=== PATIENT | male | born 1960 | race Caucasian/White ===

== ENCOUNTER → 2022-02-06 | Outpatient (CLI) | payer BC ==
--- NOTE | 2022-02-06 09:07 | FL ---
EXAMINATION TYPE: FL sniff test without CXR DATE OF EXAM: 02/06/2022 COMPARISON: X-ray dated 01/28/2022 HISTORY: Dyspnea on exertion TECHNIQUE: Observation of patient's breathing under fluoroscopy FINDINGS: Fluoroscopic guidance was provided during the procedure. A total of 1 minute and 44 secon ds of fluoroscopic time was utilized during the procedure and 15 spot images was acquired. Slightly elevated right hemidiaphragm, appreciated previously. Slightly diminished diaphragmatic excu rsions, mainly appreciated with rapid breathing. No convincing evidence of diaphragmatic paralysis or paradoxical movement at the time of the study. IMPRESSION: As Above.
--- NOTE | 2022-02-06 09:50 | CT ---
EXAMINATION TYPE: CT chest wo con DATE OF EXAM: 02/06/2022 INDICATION: Dyspnea CT DLP: 615.00 mGy.cm Automated Exposure Control for Dose Reduction was Utilized. TECHNIQUE AND CONTRAST: Axial supine and prone CT scan of the chest is performed as per high-resolution CT scan protocol, wit hout IV contrast administration. COMPARISON: X-ray dated 01/28/2022 FINDINGS: Nonspecific bilateral basal pulmonary mild fibrotic changes and peripheral reticulations, slightly mo re on the left side. No evidence of traction bronchiectasis, honeycombing or significant groundglass opacity. No obvious pulmonary cystic changes, septal thickening or diffuse micronodules. Tiny microno dules are seen at the posterior aspect of the right lower lobe, likely inflammatory/infectious in raji ology. Patent trachea and main bronchi. No pleural effusion. Apparent cardiomegaly with dilated ascending aorta measuring 4.9 cm, please correlate with echocardio graphic results. Scattered arterial atherosclerotic calcifications. The pulmonary trunk measures 3.3 cm, suggestive of pulmonary hypertension. No pathologically enlarged lymph nodes in the chest by this CT scan. No sizable pericardial effusion. Grossly unremarkable upper abdomen. Sternotomy wire suture s. IMPRESSION: Mild nonspecific pulmonary fibrotic changes mainly seen in the lower lobes as detailed above, indeter minate for UIP. Recommend clinical correlation and further workup. Other findings as described above.
== END | disposition home or self-care (01) ==
LOC: RADCTMAIN 07:18
PROVIDERS: ATTEND Internal Medicine Critical Care Medicine
DX: J84.10 Pulmonary fibrosis, unspecified (principal); J98.6 Disorders of diaphragm
CPT/HCPCS: 71250; 76000

== ENCOUNTER 2023-02-13 00:57 | Observation (INO) | payer OTHER ==
[2023-02-13] MEDS ORDERED: ACETAMINOPHEN TAB 500 MG TAB PO STA (01:37)
[2023-02-13 01:54] LABS: Basophils % (A) 0 %; Eosinophils % (A) 0 %; HCT 41.9 % (39.0-53.0); Lymphocytes # (A) 0.7 k/uL (1.0-4.8); Lymphocytes % (A) 12 %; MCH 31.6 pg (25.0-35.0); MCHC 33.4 g/dL (31.0-37.0); MCV 94.6 fL (80.0-100.0); Mean Platelet Volume 8.7; Monocytes # (A) 0.3 k/uL (0-1.0); Monocytes % (A) 5 %; Neutrophils # (A) 5.1 k/uL (1.3-7.7); Neutrophils % (A) 81 %; Platelet Count 140 k/uL (150-450); RBC 4.43 m/uL (4.30-5.90); RDW 13.4 % (11.5-15.5); WBC 6.2 k/uL (3.8-10.6)
[2023-02-13 02:02] LABS: Albumin 4.2 g/dL (3.5-5.0); Calcium 9.2 mg/dL (8.4-10.2); Total Bilirubin 1.7 mg/dL (0.2-1.3); Total Protein 6.6 g/dL (6.3-8.2)
[2023-02-13 02:18] LABS: Partial Thromboplastin Time 21.3 sec (22.0-30.0); Prothrombin Time 10.2 sec (9.0-12.0)
--- NOTE | 2023-02-13 03:23 | CT ---
EXAM: CT Head Without Intravenous Contrast CLINICAL HISTORY: ITS.REASON CT Reason: fall TECHNIQUE: Axial computed tomography images of the head/brain without intravenous contrast. CTDI is 45.285 mGy and DLP is 1160.5 mGy-cm. This CT exam was performed using one or more of the following dose reduction techniques: automated exposure control, adjustment of the mA and/or kV according to patient size, and/or use of iterative reconstruction technique. COMPARISON: No relevant prior studies available. FINDINGS: Brain: No hemorrhage or mass effect. Ventricles: No hydrocephalus. Bones/joints: Unremarkable. Soft tissues: Unremarkable. Sinuses: No air fluid level. Mastoid air cells: Clear. IMPRESSION: No acute hemorrhage, hydrocephalus, or mass effect. EXAM: CT Cervical Spine Without Intravenous Contrast CLINICAL HISTORY: ITS.REASON CT Reason: fall TECHNIQUE: Axial computed tomography images of the cervical spine without intravenous contrast. CTDI is 11.585 mGy and DLP is 389.1 mGy-cm. This CT exam was performed using one or more of the following dose reduction techniques: automated exposure control, adjustment of the mA and/or kV according to patient size, and/or use of iterative reconstruction technique. COMPARISON: No relevant prior studies available. FINDINGS: Vertebrae: No acute fracture. Discs/spinal canal/neural foramina: degenerative changes. Soft tissues: No prevertebral swelling. IMPRESSION: No acute fracture or subluxation.
--- NOTE | 2023-02-13 03:34 | ED ---
Fall HPI - General Source: EMS Mode of arrival: EMS - History of Present Illness MD Complaint: fall, other <Pooja Haney - Last Filed: 02/14/23 11:00> <My Meredithah Elba - Last Filed: 02/23/23 01:05> - General Chief Complaint: Fall Stated Complaint: Fall Time Seen by Provider: 02/13/23 01:32 - History of Present Illness Initial Comments: Patient is 62-year-old male presents to the emergency department for evaluation of fall. Patient was at [facility] for alcohol use. Apparently patient fell at [facility] from standing position. He did hit the back of his head. He lost consciousness but facility is unaware if it was before after the fall. He is on baby aspirin otherwise no blood thinners. Patient is alert and oriented 1 he is confused. He reports mild headache in the back of his head with laceration and mild pain in both of his forearms. He denies history of syncope, arrhythmia, seizure. Denies chest pain and shortness of breath. Denies fever, chills, nausea or vomiting. (Pooja Haney) - Related Data Home Medications Medication Instructions Recorded Confirmed Aspirin EC [Ecotrin Low Dose] 81 mg PO HS 02/15/22 02/13/23 Metoprolol Tartrate [Lopressor] 12.5 mg PO BID 02/15/22 02/13/23 Simvastatin [Zocor] 40 mg PO HS 02/15/22 02/13/23 Tamsulosin [Flomax] 0.4 mg PO HS 02/15/22 02/13/23 ALPRAZolam [Xanax] 0.5 mg PO TID PRN 02/13/23 02/13/23 Finasteride [Proscar] 5 mg PO HS 02/13/23 02/13/23 Secukinumab [Cosentyx Pen (2 Pens)] 150 mg SQ DIRECTED 02/13/23 02/13/23 lamoTRIgine [LaMICtal] 100 mg PO HS 02/13/23 02/13/23 Previous Rx's Medication Instructions Recorded traZODone HCL [Desyrel] 100 mg PO HS 30 Days tab 02/18/22 QUEtiapine [SEROquel] 25 mg PO HS PRN #30 tab 02/13/23 Allergies Allergy/AdvReac Type Severity Reaction Status Date / Time bupropion [From Wellbutrin] Allergy Unknown Verified 02/13/23 07:17 Penicillins Allergy Rash/Hives Verified 02/13/23 07:17 Review of Systems ROS Other: All systems not noted in ROS Statement are negative. <Pooja Haney - Last Filed: 02/14/23 11:00> ROS Other: All systems not noted in ROS Statement are negative. <Dilcia Meredith Elba - Last Filed: 02/23/23 01:05> ROS Statement: Those systems with pertinent positive or pertinent negative responses have been documented in the HPI. Past Medical History Past Medical History: Coronary Artery Disease (CAD), Hyperlipidemia History of Any Multi-Drug Resistant Organisms: None Reported Past Surgical History: Coronary Bypass/CABG Additional Past Surgical History / Comment(s): Mitral valve replacement 09/03/2021 Past Psychological History: Anxiety, Depression Smoking Status: Never smoker Past Alcohol Use History: Abuse Past Drug Use History: None Reported - Past Family History Sister(s) Family Medical History: Cancer <Pooja Haney - Last Filed: 02/14/23 11:00> General Exam Limitations: no limitations General appearance: alert, in no apparent distress Head exam: Present: atraumatic, normocephalic, normal inspection Eye exam: Present: normal appearance, PERRL, EOMI. Absent: scleral icterus, conjunctival injection, periorbital swelling ENT exam: Present: TM's normal bilaterally Neck exam: Present: normal inspection, full ROM. Absent: tenderness, meningismus, lymphadenopathy Respiratory exam: Present: normal lung sounds bilaterally. Absent: respiratory distress, wheezes, rales, rhonchi, stridor Cardiovascular Exam: Present: regular rate, normal rhythm, normal heart sounds. Absent: systolic murmur, diastolic murmur, rubs, gallop, clicks GI/Abdominal exam: Present: soft, normal bowel sounds. Absent: distended, tenderness, guarding, rebound, rigid Extremities exam: Present: normal inspection, full ROM, normal capillary refill. Absent: tenderness Neurological exam: Present: alert, CN II-XII intact. Absent: oriented X3 Expanded Cranial nerves: Tongue Deviation: Normal, Facial Palsy with Forehead Movement: Normal, Facial Palsy without Forehead Movement: Normal Cerebellar function: Finger to Nose: Normal, Heel to Bray: Normal Sensory exam: Upper Extremity Light Touch: Normal, Lower Extremity Pin Prick: Normal Motor strength exam: RUE: 5, LUE: 5, RLE: 5, LLE: 5 Psychiatric exam: Present: normal affect, normal mood Skin exam: Present: warm, dry, intact, normal color. Absent: rash <MedinaPooja - Last Filed: 02/14/23 11:00> Course Vital Signs 02/13/23 02/13/23 02/13/23 00:59 04:40 07:17 Temperature 97.9 F 98.1 F Pulse Rate 82 74 107 H Respiratory 16 16 18 Rate Blood Pressure 113/77 136/80 119/71 O2 Sat by Pulse 94 L 98 96 Oximetry 02/13/23 02/13/23 02/13/23 10:56 19:29 21:16 Temperature 98.0 F Pulse Rate 92 85 80 Respiratory 18 18 18 Rate Blood Pressure 133/81 139/77 145/87 O2 Sat by Pulse 96 95 98 Oximetry Medical Decision Making - Lab Data Result diagrams: 02/13/23 01:30 02/13/23 01:30 <Pooja Haney - Last Filed: 02/14/23 11:00> - Lab Data Result diagrams: 02/13/23 01:30 02/14/23 16:31 <Dilcia Meredith - Last Filed: 02/23/23 01:05> - Medical Decision Making EKG taken at 3:31, interpreted by me Sinus tachycardia, nonspecific T-wave abnormality Ventricular rate 90, [place] interval 165, QRS duration 85, QTC 338 Was pt. sent in by a medical professional or institution (Dr. PA, [employer], urgent care, hospital, or fci...) When possible be specific @ -No Did you speak to anyone other than the patient for history (EMS, parent, family, police, friend...)? What history was obtained from this source @ -EMS provided information about fall at [facility] Did you review nursing and triage notes (agree or disagree)? Why? @ -I reviewed and agree with nursing and triage notes Were old charts reviewed (outside hosp., previous admission, EMS record, old EKG, old radiological studies, urgent care reports/EKG's, fci records)? Report findings @ -No old charts were reviewed Differential Diagnosis (chest pain, altered mental status, abdominal pain women, abdominal pain men, vaginal bleeding, weakness, fever, dyspnea, syncope, headache, dizziness, GI bleed, back pain, seizure, CVA, palpatations, mental health)? @ -Differential Syncope: Valvular disease, hypertrophic cardiomyopathy, pulmonary embolism, tamponade, tachycardia, bradycardia, MS, hypovolemia, hemorrhage, dissection, anemia, intracranial hemorrhage, seizure, hypoglycemia, carbon monoxide poisoning, this is not meant to be an all-inclusive list. EKG interpreted by me (3pts min.). @ -As above X-rays interpreted by me (1pt min.). @ -Yes, chest x-ray shows slightly prominent interstitial markings. Bilateral forearm x-ray shows no acute fracture. CT interpreted by me (1pt min.). @ -Yes, CT of the brain and C-spine shows no acute process. U/S interpreted by me (1pt. min.). @ -None done What testing was considered but not performed or refused? (CT, X-rays, U/S, labs)? Why? @ -None What meds were considered but not given or refused? Why? @ -None Did you discuss the management of the patient with other professionals (professionals i.e. , PA, [employer], lab, RT, psych nurse, social service agency director, zinc etcher, teacher, patrol officer, skilled nursing case manager)? Give summary @ -No Was smoking cessation discussed for >3mins.? @ -No Was critical care preformed (if so, how long)? @ -No Were there social determinants of health that impacted care today? How? (Homelessness, low income, unemployed, alcoholism, drug addiction, transportation, low edu. Level, literacy, decrease access to med. care, long term, rehab)? @ -No Was there de-escalation of care discussed even if they declined (Discuss DNR or withdrawal of care, Hospice)? DNR status @ -No What co-morbidities impacted this encounter? (DM, HTN, Smoking, COPD, CAD, Cancer, CVA, ARF, Chemo, Hep., AIDS, mental health diagnosis, sleep apnea, morbid obesity)? @ -None Was patient admitted / discharged? Hospital course, mention meds given and route, prescriptions, significant lab abnormalities, going to OR and other pertinent info. @ -Patient presenting for fall possibly secondary to syncope. Patient is alert and oriented 1 little history was provided. Patient placed in c-collar. Lucy ent has 2 cm laceration in the back for scalp. Vitals are within acceptable limits. Patient does not have any tremors. CT of the brain and C-spine shows no acute process. Laboratory studies obtained. ALT is elevated at 205, AST elevated at 182 I suspect related to alcohol use. There is mild hyponatremia at 130 which is treated with normal saline bolus. Troponin within normal limits. Other laboratory studies are relatively unremarkable. Laceration approximated with jacky tetanus updated. Patient's confusion continued during visit. There is no neurological deficit but he has unsteady gait at risk for fall. Possible related to alcohol withdrawal. At this time patient is not safe for discharge he will be admitted for observation for possible syncopal episode. Patient was given to Dr. Meredith at 4:05. Undiagnosed new problem with uncertain prognosis? @ -No Drug Therapy requiring intensive monitoring for toxicity (Heparin, Nitro, Insulin, Cardizem)? @ -No Were any procedures done? @ -No Diagnosis/symptom? @ -Fall, laceration, confusion Acute, or Chronic, or Acute on Chronic? @ -acute Uncomplicated (without systemic symptoms) or Complicated (systemic symptoms)? @ -Uncomplicated Side effects of treatment? @ -No Exacerbation, Progression, or Severe Exacerbation? @ -No Poses a threat to life or bodily function? How? (Chest pain, USA, MS, pneumonia, PE, COPD, DKA, ARF, appy, cholecystitis, CVA, Diverticulitis, Homicidal, Suicidal, threat to staff... and all critical care pts) @ -Yes Dr. Meredith is my attending (Pooja Haney) - Lab Data Lab Results 02/13/23 02/13/23 02/13/23 Range/Units 01:30 01:30 01:30 WBC 6.2 (3.8-10.6) k/uL RBC 4.43 (4.30-5.90) m/uL Hgb 14.0 (13.0-17.5) gm/dL Hct 41.9 (39.0-53.0) % MCV 94.6 (80.0-100.0) fL MCH 31.6 (25.0-35.0) pg MCHC 33.4 (31.0-37.0) g/dL RDW 13.4 (11.5-15.5) % Plt Count 140 L (150-450) k/uL MPV 8.7 Neutrophils % 81 % Lymphocytes % 12 % Monocytes % 5 % Eosinophils % 0 % Basophils % 0 % Neutrophils # 5.1 (1.3-7.7) k/uL Lymphocytes # 0.7 L (1.0-4.8) k/uL Monocytes # 0.3 (0-1.0) k/uL Eosinophils # 0.0 (0-0.7) k/uL Basophils # 0.0 (0-0.2) k/uL PT 10.2 (9.0-12.0) sec INR 1.0 (<1.2) APTT 21.3 L (22.0-30.0) sec Sodium 130 L (137-145) mmol/L Potassium 4.0 (3.5-5.1) mmol/L Chloride 88 L (98-107) mmol/L Carbon Dioxide 33 H (22-30) mmol/L Anion Gap 9 mmol/L BUN 23 H (9-20) mg/dL Creatinine 1.09 (0.66-1.25) mg/dL Est GFR (CKD-EPI)AfAm 83 (>60 ml/min/1.73 sqM) Est GFR (CKD-EPI)NonAf 72 (>60 ml/min/1.73 sqM) Glucose 144 H (74-99) mg/dL Calcium 9.2 (8.4-10.2) mg/dL Total Bilirubin 1.7 H (0.2-1.3) mg/dL AST 182 H (17-59) U/L ALT 205 H (4-49) U/L Alkaline Phosphatase 109 (38-126) U/L Troponin I (0.000-0.034) ng/mL Total Protein 6.6 (6.3-8.2) g/dL Albumin 4.2 (3.5-5.0) g/dL 02/13/23 Range/Units 01:30 WBC (3.8-10.6) k/uL RBC (4.30-5.90) m/uL Hgb (13.0-17.5) gm/dL Hct (39.0-53.0) % MCV (80.0-100.0) fL MCH (25.0-35.0) pg MCHC (31.0-37.0) g/dL RDW (11.5-15.5) % Plt Count (150-450) k/uL MPV Neutrophils % % Lymphocytes % % Monocytes % % Eosinophils % % Basophils % % Neutrophils # (1.3-7.7) k/uL Lymphocytes # (1.0-4.8) k/uL Monocytes # (0-1.0) k/uL Eosinophils # (0-0.7) k/uL Basophils # (0-0.2) k/uL PT (9.0-12.0) sec INR (<1.2) APTT (22.0-30.0) sec Sodium (137-145) mmol/L Potassium (3.5-5.1) mmol/L Chloride (98-107) mmol/L Carbon Dioxide (22-30) mmol/L Anion Gap mmol/L BUN (9-20) mg/dL Creatinine (0.66-1.25) mg/dL Est GFR (CKD-EPI)AfAm (>60 ml/min/1.73 sqM) Est GFR (CKD-EPI)NonAf (>60 ml/min/1.73 sqM) Glucose (74-99) mg/dL Calcium (8.4-10.2) mg/dL Total Bilirubin (0.2-1.3) mg/dL AST (17-59) U/L ALT (4-49) U/L Alkaline Phosphatase (38-126) U/L Troponin I <0.012 (0.000-0.034) ng/mL Total Protein (6.3-8.2) g/dL Albumin (3.5-5.0) g/dL Disposition <Pooja Haney - Last Filed: 02/14/23 11:00> <Dilcia Meredith - Last Filed: 02/23/23 01:05> Clinical Impression: Fall, Confusion, Head injury, Laceration Disposition: ADMITTED IP TO THIS [facility] Condition: Stable
[2023-02-13] MEDS ORDERED: LORazepam 2 MG/ML INJ IV PRN ×2 (03:54)
[2023-02-13] MEDS ORDERED: LORazepam 1 MG TAB PO PRN ×3 (03:54)
[2023-02-13] MEDS ORDERED: SODIUM CHLORIDE 0.9% 1,000 ML IV STA (03:54)
[2023-02-13] MEDS ORDERED: LORazepam 0.5 MG TAB PO PRN (03:54)
[2023-02-13] MEDS ORDERED: THIAMINE 100 MG/ML 2 ML VIAL IM STA (03:54)
[2023-02-13] MEDS ORDERED: DIPH,PERTUS(ACELL)TETVAC-LF 0.5 ML VIAL IM ONE (03:59)
--- NOTE | 2023-02-13 03:59 | XR ---
EXAM: XR Bilateral Forearms, 2 Views CLINICAL HISTORY: ITS.REASON XR Reason: fall TECHNIQUE: Frontal and lateral views of the bilateral forearms. COMPARISON: No relevant prior studies available. FINDINGS: Bones/joints: No acute fracture. No dislocation. Soft tissues: Unremarkable. IMPRESSION: No acute osseous abnormalities.
--- NOTE | 2023-02-13 03:59 | XR ---
EXAM: XR Chest, 1 View CLINICAL HISTORY: ITS.REASON XR Reason: possible syncope TECHNIQUE: Frontal view of the chest. COMPARISON: No relevant prior studies available. FINDINGS: Lungs: No consolidation or mass. Slightly prominent interstitial markings. Pleural space: No acute findings Heart: No cardiomegaly. Bones/joints: No acute findings. IMPRESSION: Slightly prominent interstitial markings.
[2023-02-13] MEDS ORDERED: ACETAMINOPHEN TAB 325 MG TAB PO PRN (04:04)
[2023-02-13] MEDS ORDERED: ONDANSETRON 4 MG/2 ML VIAL IVP PRN (04:04)
[2023-02-13] MEDS ORDERED: SECUKINUMAB 150 MG/ML SQ SCH (11:15)
[2023-02-13] MEDS: SODIUM CHLORIDE 0.9% 1,000 ML IV SCH ×3 (11:25→19:22)
--- NOTE | 2023-02-13 13:09 | P.HPIM ---
History of Present Illness 62-year-old pleasant male [facility]. Patient was bit confused but there is no tongue biting no evidence of seizure-like activity. Patient last alcohol drink was yesterday morning. Patient is found to be dehydrated which resulted in syncope patient serum sodium is 1:30. Patient's creatinine was slightly high at 1.09. Patient will be hydrated today will be discharged today EKG did not show any acute ST-T wave changes no murmurs on exam. Although patient had a mitral valvular surgery in the past and had multiple echocardiac times in the past he did patient does have elevated liver enzymes seconded alcoholic liver disease. Patient may have some early dementia secondary to chronic alcohol use. As per the request of the daughter will do mini cognitive testing. REVIEW OF SYSTEMS: CONSTITUTIONAL: No fever, no malaise, no fatigue. HEENT: No recent visual problems or hearing problems. Denied any sore throat. CARDIOVASCULAR: No chest pain, orthopnea, PND, no palpitations. PULMONARY: No shortness of breath, no cough, no hemoptysis. GASTROINTESTINAL: No diarrhea, no nausea, no vomiting, no abdominal pain. NEUROLOGICAL: No headaches, no weakness, no numbness. HEMATOLOGICAL: Denies any bleeding or petechiae. GENITOURINARY: Denies any burning micturition, frequency, or urgency. MUSCULOSKELETAL/RHEUMATOLOGICAL: Denies any joint pain, swelling, or any muscle pain. ENDOCRINE: Denies any polyuria or polydipsia. The rest of the 14-point review of systems is negative. PHYSICAL EXAMINATION: GENERAL: The patient is alert and oriented x3, not in any acute distress. Well developed, well nourished. HEENT: Pupils are round and equally reacting to light. EOMI. No scleral icterus. No conjunctival pallor. Normocephalic, atraumatic. No pharyngeal erythema. No thyromegaly. CARDIOVASCULAR: S1 and S2 present. No murmurs, rubs, or gallops. PULMONARY: Chest is clear to auscultation, no wheezing or crackles. ABDOMEN: Soft, nontender, nondistended, normoactive bowel sounds. No palpable organomegaly. MUSCULOSKELETAL: No joint swelling or deformity. EXTREMITIES: No cyanosis, clubbing, or pedal edema. NEUROLOGICAL: Gross neurological examination did not reveal any focal deficits. SKIN: No rashes. Assessment and plan -Syncope: Secondary to dehydration intravascularly depletion as mentioned above patient will be hydrated and will be discharged after that no further workup is needed at this time. -Alcohol abuse patient is in rehabilitation program at this time -Hypervolemic hyponatremia: IV hydration as mentioned above -History of coronary artery disease with CABG in the past -Hyperlipidemia Depression/bipolar disorder patient is on Lamictal it appears that patient is a limiting for bipolar disorder -Alcoholic hepatitis -Possibility of early stage of dementia maybe secondary to chronic alcohol use, Mini-Mental Status exam and patient will be prescribed Seroquel as needed for sundowners Patient will be discharged today after IV hydration Past Medical History Past Medical History: Coronary Artery Disease (CAD), Hyperlipidemia History of Any Multi-Drug Resistant Organisms: None Reported Past Surgical History: Coronary Bypass/CABG Additional Past Surgical History / Comment(s): Mitral valve replacement 03/2021 Past Psychological History: Anxiety, Depression Smoking Status: Never smoker Past Alcohol Use History: Abuse Past Drug Use History: None Reported - Past Family History Sister(s) Family Medical History: Cancer Medications and Allergies Home Medications Medication Instructions Recorded Confirmed Type Aspirin EC [Ecotrin Low Dose] 81 mg PO HS 02/15/22 02/13/23 History Metoprolol Tartrate [Lopressor] 12.5 mg PO BID 02/15/22 02/13/23 History Simvastatin [Zocor] 40 mg PO HS 02/15/22 02/13/23 History Tamsulosin [Flomax] 0.4 mg PO HS 02/15/22 02/13/23 History traZODone HCL [Desyrel] 100 mg PO HS 30 Days tab 02/18/22 02/13/23 Rx ALPRAZolam [Xanax] 0.5 mg PO TID PRN 02/13/23 02/13/23 History Finasteride [Proscar] 5 mg PO HS 02/13/23 02/13/23 History QUEtiapine [SEROquel] 25 mg PO HS PRN #30 tab 02/13/23 Rx Secukinumab [Cosentyx Pen (2 Pens)] 150 mg SQ DIRECTED 02/13/23 02/13/23 History lamoTRIgine [LaMICtal] 100 mg PO HS 02/13/23 02/13/23 History Allergies Allergy/AdvReac Type Severity Reaction Status Date / Time bupropion [From Wellbutrin] Allergy Unknown Verified 02/13/23 07:17 Penicillins Allergy Rash/Hives Verified 02/13/23 07:17 Physical Exam Vitals: Vital Signs Temp Pulse Resp BP Pulse Ox 02/13/23 10:56 98.0 F 92 18 133/81 96 02/13/23 07:17 98.1 F 107 H 18 119/71 96 02/13/23 04:40 74 16 136/80 98 02/13/23 00:59 97.9 F 82 16 113/77 94 L Intake and Output 02/12/23 02/13/23 02/13/23 22:59 06:59 14:59 Other: Weight 81.647 kg Results CBC & Chem 7: 02/13/23 01:30 02/13/23 01:30 Labs: Abnormal Lab Results - Last 24 Hours (Table) 02/13/23 02/13/23 02/13/23 Range/Units 01:30 01:30 01:30 Plt Count 140 L (150-450) k/uL Lymphocytes # 0.7 L (1.0-4.8) k/uL APTT 21.3 L (22.0-30.0) sec Sodium 130 L (137-145) mmol/L Chloride 88 L (98-107) mmol/L Carbon Dioxide 33 H (22-30) mmol/L BUN 23 H (9-20) mg/dL Glucose 144 H (74-99) mg/dL Total Bilirubin 1.7 H (0.2-1.3) mg/dL AST 182 H (17-59) U/L ALT 205 H (4-49) U/L
--- NOTE | 2023-02-13 13:09 | P.DS ---
Providers Date of admission: 02/13/23 04:05 Attending physician: Kaylah Lieberman Primary care physician: Stated None Hospital Course: Please refer to history of present illness for further details Patient Condition at Discharge: Stable Plan - Discharge Summary New Discharge Prescriptions: New QUEtiapine [SEROquel] 25 mg PO HS PRN #30 tab PRN Reason: Agitation Continue Tamsulosin [Flomax] 0.4 mg PO HS Simvastatin [Zocor] 40 mg PO HS Aspirin EC [Ecotrin Low Dose] 81 mg PO HS traZODone HCL [Desyrel] 100 mg PO HS 30 Days tab ALPRAZolam [Xanax] 0.5 mg PO TID PRN PRN Reason: panic attacks Finasteride [Proscar] 5 mg PO HS lamoTRIgine [LaMICtal] 100 mg PO HS Metoprolol Tartrate [Lopressor] 12.5 mg PO BID Secukinumab [Cosentyx Pen (2 Pens)] 150 mg SQ DIRECTED Discharge Medication List Aspirin EC [Ecotrin Low Dose] 81 mg PO HS 02/15/22 [History] Metoprolol Tartrate [Lopressor] 12.5 mg PO BID 02/15/22 [History] Simvastatin [Zocor] 40 mg PO HS 02/15/22 [History] Tamsulosin [Flomax] 0.4 mg PO HS 02/15/22 [History] traZODone HCL [Desyrel] 100 mg PO HS 30 Days tab 02/18/22 [Rx] ALPRAZolam [Xanax] 0.5 mg PO TID PRN 02/13/23 [History] Finasteride [Proscar] 5 mg PO HS 02/13/23 [History] QUEtiapine [SEROquel] 25 mg PO HS PRN #30 tab 02/13/23 [Rx] Secukinumab [Cosentyx Pen (2 Pens)] 150 mg SQ DIRECTED 02/13/23 [History] lamoTRIgine [LaMICtal] 100 mg PO HS 02/13/23 [History] Discharge Disposition: OTHER INSTITUTION NOT DEFINED
[2023-02-13] MEDS ORDERED: QUEtiapine 25 MG TAB PO PRN (15:14)
[2023-02-13] MEDS ORDERED: NICOTINE 21MG/24HR PATCH TRANSDERM STA (15:38)
[2023-02-13] MEDS ORDERED: TAMSULOSIN 0.4 MG CAP.ER.24H PO SCH (21:00)
[2023-02-13] MEDS ORDERED: FINASTERIDE 5 MG TAB PO SCH (21:00)
[2023-02-13] MEDS ORDERED: traZODone HCL 100 MG TAB PO SCH (21:00)
[2023-02-13] MEDS ORDERED: ASPIRIN 81 MG PO SCH (21:00)
[2023-02-13] MEDS ORDERED: ATORVASTATIN 20 MG TAB PO SCH (21:00)
[2023-02-13] MEDS ORDERED: lamoTRIgine 100 MG TAB PO SCH (21:00)
[2023-02-13] MEDS: METOPROLOL TARTRATE 12.5 MG TAB PO SCH (21:14)
[2023-02-14] MEDS ORDERED: THIAMINE 100 MG TAB PO SCH (09:00)
[2023-02-14] MEDS: SODIUM CHLORIDE 0.9% 1,000 ML IV SCH ×3 (09:38→09:47)
[2023-02-14] MEDS: METOPROLOL TARTRATE 12.5 MG TAB PO SCH (09:46)
[2023-02-14 10:18] LABS: Urine Alcohol Negative (Negative); Urine Barbiturate Negative (Negative); Urine Cocaine Negative (Negative); Urine Methadone Negative (Negative); Urine Opiates Negative (Negative); Urine Phencyclidine Negative (Negative)
[2023-02-14 10:19] VITALS: RESP 18
--- NOTE | 2023-02-14 13:48 | CA ---
Transthoracic Echo Report Name: Scott Branch Age: 62 Gender: M : 1960 Exam Date: 02/13/2023 13:02 Exam Location: [facility] Ht (in): 72 Wt (lb): 180 Ordering Physician: Inés Marion MD Attending/Referring Phys: Glass Processing Worker Jaye Faulkner RDCS Procedure CPT: Indications: Syncope Cardiac Hx: Technical Quality: Fair Contrast 1: Total Dose (mL): Contrast 2: Total Dose (mL): MEASUREMENTS (Male / Female) Normal Values 2D ECHO LV Diastolic Diameter PLAX 4.9 cm 4.2 - 5.9 / 3.9 - 5.3 cm IVS Diastolic Thickness 0.6 cm 0.6 - 1.0 / 0.6 - 0.9 cm LVPW Diastolic Thickness 1.0 cm 0.6 - 1.0 / 0.6 - 0.9 cm LV Relative Wall Thickness 0.3 RV Internal Dim ED PLAX 3.3 cm LVOT Diameter 2.4 cm Aortic Root Diameter 3.7 cm LA Systolic Diameter LX 3.4 cm 3.0 - 4.0 / 2.7 - 3.8 cm LV Diastolic Volume MOD BP 61.4 cm??? 67 - 155 / 56 - 104 cm??? LV Systolic Volume MOD BP 20.1 cm??? 22 - 58 / 19 - 49 cm??? LV Ejection Fraction MOD BP 67.3 % >= 55 % LV Diastolic Volume MOD 4C 81.6 cm??? LV Systolic Volume MOD 4C 27.9 cm??? LV Ejection Fraction MOD 4C 65.7 % LV Diastolic Length 4C 8.1 cm LV Systolic Length 4C 6.6 cm LV Diastolic Volume MOD 2C 45.7 cm??? LV Systolic Volume MOD 2C 13.7 cm??? LV Ejection Fraction MOD 2C 70.0 % LV Diastolic Length 2C 8.0 cm LV Systolic Length 2C 6.2 cm Ascending Aorta Diameter 3.8 cm DOPPLER AV Peak Velocity 149.6 cm/s AV Peak Gradient 9.0 mmHg Mitral E Point Velocity 108.2 cm/s Mitral A Point Velocity 130.3 cm/s Mitral E to A Ratio 0.8 MV Deceleration Time 283.5 ms MV E' Velocity 18.1 cm/s Mitral E to MV E' Ratio 6.0 TR Peak Velocity 210.8 cm/s TR Peak Gradient 17.8 mmHg Right Ventricular Systolic Press 22.9 mmHg FINDINGS Left Ventricle Left ventricular ejection fraction is estimated at 55-60 %. Right Ventricle Normal right ventricular size and function. RVSP= 26mmhg. Right Atrium Normal right atrial size. Left Atrium Normal left atrial size. LA Volume Index= 26.8 ml/m2 Mitral Valve Grossly Normal. No mitral stenosis, regurgitation or prolapse. Aortic Valve Trileaflet aortic valve. No aortic valve stenosis or regurgitation. Tricuspid Valve Structurally normal tricuspid valve. Trace tricuspid regurgitation. Pulmonic Valve Pulmonic valve not well visualized. No pulmonic regurgitation. Pericardium Normal pericardium. Aorta Normal size aortic root and proximal ascending aorta. CONCLUSIONS Normal LV function Previewed by: Dr. Anival Sahu MD (Electronically Signed) Final Date: 14 Feb 2023 13:47
[2023-02-14 14:17] VITALS: BP 124/80; PULSE 87; TEMP 98.7
--- NOTE | 2023-02-14 15:01 | DS ---
DISCHARGE SUMMARY FINAL DIAGNOSES: 1. Syncope secondary to possible dehydration. 2. Ethanol abuse. 3. Hypovolemic hyponatremia. 4. Multiple medications. DISCHARGE DISPOSITION: The patient will be discharged in stable condition, guarded prognosis, after clearance from Psychiatry and Neurology. HISTORY OF PRESENT ILLNESS: This is a 62-year-old gentleman who was admitted with syncope. The patient was hydrated. The patient improved significantly. The patient will be discharged after clearance from Psychiatry and Neurology. The patient is extremely keen on going home. The patient is walking out of the hospital. PHYSICAL EXAMINATION: VITAL SIGNS: On exam, vitals are stable. CARDIOVASCULAR: S1, S2. ABDOMEN: Soft. NERVOUS SYSTEM: No focal deficits. DIET: Cardiac. Follow up with Dr. Maddie Flores in 1 week. Follow up with [facility], Neurology and Psych as mentioned earlier. MEDICATIONS: Seroquel 250 mg nightly p.r.n. Resume the previous medications. Once again, the patient is stable but overall prognosis guarded. MMODL / IJN: [id number] / MTDKat
--- NOTE | 2023-02-14 16:44 | P.CN ---
Psychiatric Consult - . Consult date: 02/14/23 Consult:: 02/14/23 14:42 IDENTIFYING DATA: This patient is a 62 year old retired male REASON FOR REFERRAL: Psychiatry was consulted for potential psychosis HISTORY OF PRESENT ILLNESS: The patient presented to the hospital from [place] following episode of syncope. Patient has a long history of substance use and depression. Patient reports a relapse with drinking half a pint to a pint of alcohol every day for the past 2 weeks with the last drink being on 02/11/23. He states that he was not taking any medication for alcohol withdrawal while at [place]. He reports that during the period of relapse on his drinking, he has not been compliant with his psychiatric medications including Lamictal and trazodone. He reports largely doing well on his medications prior to discontinuation of them. Patient endorses drinking because of loneliness. He reports a low mood at baseline. He endorses fair appetite. He states that he enjoys bowling and spending time with people he knows through alcohol anonymous. Patient reports trouble with staying asleep due to having racing thoughts. Discussed the impact of alcohol on sleep. Patient largely understands the immediate and long-term risks of substance use on his mental health. At this time patient denies any suicidal or homicidal ideations, intent or plan. He is future oriented and would like to spend time with his alcohol anonymous friends. Patient denies any auditory, visual hallucinations and denies any paranoia or delusions. He denies constellation of symptoms consistent with jayla. PAST PSYCHIATRIC HISTORY: One prior hospitalization here at [facility] due to depression and alcohol use. He states that he is currently seeing Jaye Moore NP for psychiatric care. He also states that he has a substance use counselor by the name Otilio. His primary care provider was previously prescribing Xanax and citalopram for treatment of depression and anxiety. PAST MEDICAL HISTORY: His history of coronary artery disease and hyperlipidemia. He is status post coronary bypass and mitral valve prolapse. ALLERGIES: Bupropion, penicillins SUBSTANCE USE HISTORY: He is a 30+ year history of alcohol use disorder. He r egularly attends alcohol anonymous meetings. He also endorses using cannabis twice a week. He denies other substance use. FAMILY PSYCHIATRIC/SUBSTANCE USE HISTORY: He reports that his maternal gran dmother also suffered from alcohol use disorder. He states that his mother after having 5 years of dementia. SOCIAL HISTORY: Was born and raised in [facility]. He graduated from high school. He has 1 brother and 1 sister. and twice. He has 2 adult children. 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 His parents are . He lives alone in his own home. He reports being close to his daughter MENTAL STATUS EXAM: General Appearance: Patient appears to be stated age is alert, pleasant, and cooperative. Patient appears to have fair hygiene and grooming wearing hospital gown with good eye contact. Behavior: Patient is calmly lying in bed without any agitated behavior. Speech: Patient's speech is fluent and nonpressured. Mood/Affect: Patient reports their mood is "good now", affect is congruent Suicidality/Homicidality: Patient denies having any suicidal or homicidal ideation intent or plan. Perceptions: Patient denies any visual hallucinations and denies any auditory hallucinations Though content/process: There is no evidence of any delusional thought content and thought process is linear and goal-directed. Memory and concentration: AOX3, grossly intact for the purposes of this session. 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 -Patient DOES have decision making capacity at this time -Continue home psychotropic medications. Discussed with patient at length the concern of resuming Lamictal at 100 mg following discontinuation of this medication. In the future, patient will need to start Lamictal at 25 mg after being noncompliant with this. Described the risk of SJS among other side effects. Patient expressed understanding -Do NOT recommend long-term prescription of benzodiazepines given the risk of falls, cognitive impairment, etc. particularly in context of alcohol use disorder -Once liver enzymes have stabilized, might consider outpatient treatment with naltrexone for alcohol craving. Patient was currently not interested in Campral due to its 3 times a day dosing. -Discussed recommendation of Remeron as an agent for mood, sleep, and appetite. Patient was currently hesitant to be started on this medication. This might be considered outpatient as well. -Scoring low on CIWA -Can discontinue 1:1 sitter at this time as patient is not currently an imminent threat to themselves -Patient plans to follow-up with current mental health providers including Jaye Moore NP and Otilio (substance use counselor). Patient already engaged in alcohol anonymous and was encouraged to continue -Lottery Clerk spoke with patient about substance abuse and the harmful effects on medical and mental health, patient verbally understood and agreed.] -kettle worker to provide patient with access line number to call for inpatient substance rehab. He states that he is not currently interested in returning back to rehab -Communicated plan to patient's nurse -Psychiatry will sign off at this time -Please contact with any questions. 02/14/23 16:27
--- NOTE | 2023-02-14 16:50 | P.CNNES ---
History of Present Illness Consult date: 02/14/23 Requesting physician: Linh Ray Reason for Consult: altered mental status History of Present Illness: Patient is a 62-year-old male with history of alcoholism, came to the hospital for syncope versus seizure. Patient states that he went to [place] for alcohol rehab on , 02/12/2023. His last drink was on Thursday, 2 days prior. Patient states that on he did not eat or drink water much, was active, played basketball and some freezebee. At around 7-8 PM, he started feeling lightheaded, clammy, dizzy and then he blacked out. He lost consciousness, and does not remember much ambulance ride, except for some bits and pieces of the ride. He hit his head on the ground producing a small laceration. He did not bite his tongue, or lost control of urine. EMS flow sheet not available in the chart. Patient's vitals on arrival blood pressure 113/77, pulse rate [address] head showed no acute process or mass effect. I personally reviewed CT head, agree with the findings. CT of the cervical spine showed no acute fracture or subluxation. EKG showed sinus rhythm and chest x-ray showed slightly prominent interstitial markings. X-ray of the forearm showed no fracture. Patient had a 2-D echo performed which revealed normal left ventricle function with EF 55-60%. Normal left atrial size. Normal right atrial size. Patient's blood tests shows normal WBC, hemoglobin, with MCV borderline 94.6. Platelets 140. INR 1.0. Sodium 1:30 potassium 4.0, BUN 23 creatinine 1.09. AST is 182, ALT 1 205, both elevated. Troponin negative, ammonia < 9, urine drug screen positive for cannabinoids, negative for benzodiazepine. Patient's home medications include Lamictal 100 mg at bedtime, probably for psychiatric reason. Patient never been told of having seizure. Patient takes Proscar, Xanax 0.5 mg 3 times a day when necessary, trazodone 100 mg at bedtime, metoprolol 12.5 mg twice a day, aspirin 81 mg, simvastatin 40 mg and Flomax. Patient states that he was prescribed Xanax, but he stopped taking it 3 weeks ago because he was drinking. Patient has history of passing out one time in the past about 1-1/2 years ago, when he was in a casino, has drank quite a bit of alcohol. He was taken to [facility], where he stayed for one to 2 hours and then left before could be seen. He chews tobacco one can per day for last 20-25 years. Patient states that he has drank 1 pint of vodka off and on for 20 years. At one time he was sober for 6 years. He says that he would drink heavily for 4-7 days, then would stop 4 months. Patient's daughter mentions that he does drink significantly. Patient does smoke marijuana "once in a while". Review of Systems Constitutional: Denies chills, Denies fever Eyes: denies blurred vision, denies diplopia, denies pain Ears: deny: decreased hearing Ears, nose, mouth and throat: Reports headache, Denies sore throat Cardiovascular: Denies chest pain, Denies shortness of breath Respiratory: Denies cough, Denies excessive sputum Gastrointestinal: Denies abdominal pain, Denies diarrhea, Denies nausea, Denies vomiting Musculoskeletal: Denies gait dysfunction, Denies myalgias Integumentary: Denies pruritus, Denies rash Neurological: Reports as per HPI Psychiatric: Reports anxiety, Reports depression Endocrine: Denies fatigue, Denies heat intolerance Past Medical History Past Medical History: Coronary Artery Disease (CAD), Hyperlipidemia History of Any Multi-Drug Resistant Organisms: None Reported Past Surgical History: Coronary Bypass/CABG Additional Past Surgical History / Comment(s): Mitral valve replacement 09/03/2021 Past Psychological History: Anxiety, Depression Smoking Status: Never smoker Past Alcohol Use History: Abuse Past Drug Use History: None Reported - Past Family History Sister(s) Family Medical History: Cancer Medications and Allergies Home Medications Medication Instructions Recorded Confirmed Type Aspirin EC [Ecotrin Low Dose] 81 mg PO HS 02/15/22 02/13/23 History Metoprolol Tartrate [Lopressor] 12.5 mg PO BID 02/15/22 02/13/23 History Simvastatin [Zocor] 40 mg PO HS 02/15/22 02/13/23 History Tamsulosin [Flomax] 0.4 mg PO HS 02/15/22 02/13/23 History traZODone HCL [Desyrel] 100 mg PO HS 30 Days tab 02/18/22 02/13/23 Rx ALPRAZolam [Xanax] 0.5 mg PO TID PRN 02/13/23 02/13/23 History Finasteride [Proscar] 5 mg PO HS 02/13/23 02/13/23 History QUEtiapine [SEROquel] 25 mg PO HS PRN #30 tab 02/13/23 Rx Secukinumab [Cosentyx Pen (2 Pens)] 150 mg SQ DIRECTED 02/13/23 02/13/23 History lamoTRIgine [LaMICtal] 100 mg PO HS 02/13/23 02/13/23 History Allergies Allergy/AdvReac Type Severity Reaction Status Date / Time bupropion [From Wellbutrin] Allergy Unknown Verified 02/13/23 07:17 Penicillins Allergy Rash/Hives Verified 02/13/23 07:17 Physical Examination - Vital Signs Vital Signs: Vital Signs Temp Pulse Pulse Resp BP BP Pulse Ox 02/14/23 10:15 18 02/14/23 07:00 98.5 F 82 17 135/76 97 02/14/23 02:00 97.7 F 72 16 127/70 97 02/13/23 23:00 98.6 F 79 18 121/75 96 02/13/23 21:16 80 18 145/87 98 02/13/23 19:29 85 18 139/77 95 Intake and Output 02/13/23 02/14/23 02/14/23 22:59 06:59 14:59 Intake Total 300 Balance 300 Intake: Oral 300 Other: Voiding Method Toilet # Voids 3 2 Weight 81.647 kg Patient is a late middle aged male, appears younger than his stated age. Patient appears slightly delirious, slightly hyper. Patient is alert awake oriented to time place and person. Speech and language functions are normal. Patient can name and repeat very well. No aphasia or dysarthria. Attention, concentration and fund of knowledge is adequate. On cranial nerve examination, pupils are equal, round and reacting to light, visual villatoro are full on confrontation, with no neglect on double simultaneous stimulation. Extraocular muscles are intact with no nystagmus. Face is symmetric, tongue protrudes to the midline. Palatal elevation and sensation normal, hearing and shoulder shrug normal, facial sensation normal. No evidence of tongue bite bianca. On muscle strength testing, there is no pronator drift and the strength is normal in arms and legs distally and proximally. Deep tendon reflexes are symmetric 1+ at the biceps, 1+ brachioradialis, 2 at the knees, 1 ankles and plantars downgoing bilaterally. Sensory to touch is equal with no neglect on double simultaneous stimulation. Cerebellar function showed no ataxia for [id number] testing. No dysdiadochokinesia. No ataxia for obss-on-oxar testing on either side. Tone and bulk of muscles normal. Gait deferred.. On general examination, there is no carotid bruit or murmur, S1-S2 audible. Chest is clear on consultation. Abdomen is soft nontender. No organomegaly, bowel sounds present. Peripheral pulses are present. No edema. Results - Laboratory Findings CBC and BMP: 02/13/23 01:30 02/14/23 16:31 Abnormal Lab Findings: Abnormal Labs 02/13/23 02/13/23 02/13/23 01:30 01:30 01:30 Plt Count 140 L Lymphocytes # 0.7 L APTT 21.3 L Sodium 130 L Chloride 88 L Carbon Dioxide 33 H BUN 23 H Glucose 144 H Total Bilirubin 1.7 H AST 182 H ALT 205 H U Cannabinoids Screen 02/14/23 05:10 Plt Count Lymphocytes # APTT Sodium Chloride Carbon Dioxide BUN Glucose Total Bilirubin AST ALT U Cannabinoids Screen Positive A Assessment and Plan Assessment: * Syncope versus seizure. Causes multifactorial as mentioned below. Patient states that he did not eat or drink significantly on the day of seizure, and was quite active during the day, therefore dehydration and syncope is a possibility. Patient also has history of alcoholism, was undergoing rehab, therefore alcohol withdrawal seizure also a possibility. * Rule out alcohol withdrawal seizure. * Patient was also prescribed Xanax 0.5 mg 3 times a day, which he claims he stopped taking it 3 weeks ago. Therefore withdrawal from Xanax may also be contributing. * Hyponatremia * Elevated hepatic enzymes, seems to be getting worse over years, possibly from alcoholism. * Hyperlipidemia * CAD * Marijuana use * Chew tobacco * Anxiety, depression Plan: * Patient's syncope versus seizure is of unclear cause, likely multifactorial due to reasons mentioned above. * Patient is already on Lamictal 100 mg daily, which has anti-seizure effect. * Recommend patient follow up with neurologist to consider EEG and an MRI as an outpatient. * Patient counseled about abstinence from tobacco, alcohol. * Continue aspirin. * Continue thiamine, folate and multivitamins. * Patient has anxiety, depression, psychiatry on board. * Recommend patient stay off Xanax. He has been off Xanax for last 3 weeks. * Patient informed of [place] state law of no driving unless seizure/syncopal free for 6 months, climbing ladders, operating dangerous machinery or uns upervised swimming. * Thank you for the consult. Addendum: Stat sodium level checked improved to 135. Stat hepatic panel also shows improvement with AST 98 (from 182), and ALT 135(down from 205). Neurologically clear, with the above recommendations. Time with Patient: Greater than 30
[2023-02-14 17:07] LABS: Albumin 4.2 g/dL (3.5-5.0); Albumin/Globulin Ratio 1.6; Bilirubin,Unconjugated 0.7 mg/dL (0.0-1.1); Globulin 2.6 g/dL; Total Bilirubin 0.9 mg/dL (0.2-1.3); Total Protein 6.8 g/dL (6.3-8.2)
== END 2023-02-14 17:51 | disposition other institution (70) ==
LOC: EC 00:57 → 6NMEDSUR 04:05 → 4SSUR 20:39
PROVIDERS: ADMIT Hospitalist; ATTEND Hospitalist
DX: R55 Syncope and collapse (principal); F10.10 Alcohol abuse, uncomplicated; E86.1 Hypovolemia; E87.1 Hypo-osmolality and hyponatremia; E86.0 Dehydration; I25.10 Atherosclerotic heart disease of native coronary artery without angina pectoris; Z95.1 Presence of aortocoronary bypass graft; E78.5 Hyperlipidemia, unspecified; F31.9 Bipolar disorder, unspecified; K70.10 Alcoholic hepatitis without ascites; Z95.2 Presence of prosthetic heart valve; Z80.9 Family history of malignant neoplasm, unspecified; Z79.82 Long term (current) use of aspirin; Z79.899 Other long term (current) drug therapy; Z88.0 Allergy status to penicillin; Z88.8 Allergy status to other drugs, medicaments and biological substances
CPT/HCPCS: 90471; 96360; 96361; 96372; 99285; 36415; 93005; 93306; 92610; 80053; 80076; 82140; 84295; 84484; 85025; 85610; 85730; 80306; 73090; 71045; 72125; 70450; 90715; G0378 ×3; S4990; S0138; J3411

== ENCOUNTER 2023-12-08 15:47 | Observation (INO) | payer OTHER ==
--- NOTE | 2023-12-08 16:32 | ED ---
Psych HPI - General Chief Complaint: Psychiatric Symptoms Stated Complaint: Detox,AMS Time Seen by Provider: 12/08/23 16:10 Source: patient, family Mode of arrival: wheelchair - History of Present Illness Initial Comments: 63-year-old male brought in by his daughter for mental health evaluation. Patient has history of alcohol abuse, he drinks anywhere from a pint to half gallon per day. He is unable to tell me how much he has drank today. Daughter will be petitioning patient. He is tearful and poor historian. Patient tried to get up out of his stretcher and fell hitting his head on the floor. There is no loss of consciousness. He is on no blood thinners. No homicidal ideation. Daughter is concerned that the patient is "trying to drink himself to ". No other threats of self-harm or plans. - Related Data Home Medications Medication Instructions Recorded Confirmed Aspirin EC [Ecotrin Low Dose] 81 mg PO HS 02/15/22 02/13/23 Metoprolol Tartrate [Lopressor] 12.5 mg PO BID 02/15/22 02/13/23 Simvastatin [Zocor] 40 mg PO HS 02/15/22 02/13/23 Tamsulosin [Flomax] 0.4 mg PO HS 02/15/22 02/13/23 ALPRAZolam [Xanax] 0.5 mg PO TID PRN 02/13/23 02/13/23 Finasteride [Proscar] 5 mg PO HS 02/13/23 02/13/23 Secukinumab [Cosentyx Sensoready 150 mg SQ DIRECTED 02/13/23 02/13/23 (2 Pens)] lamoTRIgine [LaMICtal] 100 mg PO HS 02/13/23 02/13/23 Previous Rx's Medication Instructions Recorded traZODone HCL [Desyrel] 100 mg PO HS 30 Days tab 02/18/22 QUEtiapine [SEROquel] 25 mg PO HS PRN #30 tab 02/13/23 Allergies Allergy/AdvReac Type Severity Reaction Status Date / Time bupropion [From Wellbutrin] Allergy Unknown Verified 02/13/23 07:17 Penicillins Allergy Rash/Hives Verified 02/13/23 07:17 Review of Systems ROS Statement: Those systems with pertinent positive or pertinent negative responses have been documented in the HPI. ROS Other: All systems not noted in ROS Statement are negative. Past Medical History Past Medical History: Coronary Artery Disease (CAD), Hyperlipidemia History of Any Multi-Drug Resistant Organisms: None Reported Past Surgical History: Coronary Bypass/CABG Additional Past Surgical History / Comment(s): Mitral valve replacement 09/03/2021 Past Psychological History: Anxiety, Depression Smoking Status: Never smoker Past Alcohol Use History: Abuse Past Drug Use History: None Reported - Past Family History Sister(s) Family Medical History: Cancer General Exam Limitations: no limitations General appearance: alert, appears intoxicated, anxious Head exam: Present: normocephalic Expanded Head exam: Present: hematoma (Hematoma to the right-sided forehead) Eye exam: Present: normal appearance, PERRL, EOMI Pupils: Present: normal accommodation Neck exam: Present: normal inspection. Absent: meningismus Respiratory exam: Present: normal lung sounds bilaterally. Absent: respiratory distress, wheezes, rales, rhonchi, stridor Cardiovascular Exam: Present: regular rate, normal rhythm, normal heart sounds. Absent: systolic murmur, diastolic murmur, rubs, gallop, clicks Neurological exam: Present: alert, altered Psychiatric exam: Present: agitated, anxious Skin exam: Present: warm, dry Course Vital Signs 12/08/23 15:56 Temperature 99 F Pulse Rate 96 Respiratory 16 Rate Blood Pressure 130/85 O2 Sat by Pulse 96 Oximetry Medical Decision Making - Medical Decision Making Was pt. sent in by a medical professional or institution (, PA, INDOOR SPORTS CENTRE MANAGER, urgent care, hospital, or long term...) When possible be specific @ -No Did you speak to anyone other than the patient for history (EMS, parent, family, police, friend...)? What history was obtained from this source @ -History obtained from the patient's daughter, who is also his guardian Did you review nursing and triage notes (agree or disagree)? Why? @ -I reviewed and agree with nursing and triage notes Were old charts reviewed (outside hosp., previous admission, EMS record, old EKG, old radiological studies, urgent care reports/EKG's, long term records)? Report findings @ -No old charts were reviewed Differential Diagnosis (chest pain, altered mental status, abdominal pain women, abdominal pain men, vaginal bleeding, weakness, fever, dyspnea, syncope, headache, dizziness, GI bleed, back pain, seizure, CVA, palpatations, mental health, musculoskeletal)? @ -Differential Mental Health Depression, anxiety, bipolar, psychosis, schizophrenia, borderline personality, situational depression, adjustment disorder, behavioral disorder, brain tumor, malingering, substance abuse, encephalopathy, medication reaction, dementia, hypothyroidism, degenerative neurologic disorder, lupus.... This is not meant to be all-inclusive list EKG interpreted by me (3pts min.). @ -As above X-rays interpreted by me (1pt min.). @ -None done CT interpreted by me (1pt min.). @ -CT shows mild anterior right temporal scalp contusion. No acute intracranial abnormality seen. No acute fracture or malalignment of the cervical spine. Moderate to advanced spondylitic change especially C4-C6 levels U/S interpreted by me (1pt. min.). @ -None done What testing was considered but not performed or refused? (CT, X-rays, U/S, labs)? Why? @ -None What meds were considered but not given or refused? Why? @ -None Did you discuss the management of the patient with other professionals (professionals i.e. , PA, [employer]RE MANAGER, lab, RT, psych nurse, forensic social worker, account receivable associate, teacher, combat information center officer, piano case and bench assembler)? Give summary @ -I spoke with Mikayla Chanel from [facility] who accepted admission Was smoking cessation discussed for >3mins.? @ -No Was critical care preformed (if so, how long)? @ -No Were there social determinants of health that impacted care today? How? (Homelessness, low income, unemployed, alcoholism, drug addiction, transportation, low edu. Level, literacy, decrease access to med. care, skilled nursing, rehab)? @ -Alcoholism Was there de-escalation of care discussed even if they declined (Discuss DNR or withdrawal of care, Hospice)? DNR status @ -No What co-morbidities impacted this encounter? (DM, HTN, Smoking, COPD, CAD, Cancer, CVA, ARF, Chemo, Hep., AIDS, mental health diagnosis, sleep apnea, morbid obesity)? @ -None Was patient admitted / discharged? Hospital course, mention meds given and route, prescriptions, significant lab abnormalities, going to OR and other pertinent info. @ -63-year-old male petitioned by his daughter for mental health evaluation. History of daily alcohol consumption, ranges anywhere from a pint to half gallon per day. While here the patient did fall and hit his head. Negative CT of the brain and cervical spine. Transaminitis is present, which aligns with history of alcohol abuse. Breath alcohol level is 0.296. Patient will be admitted for alcohol intoxication and detox, will be evaluated by psychiatry tomorrow. S tarted on [facility] protocol. Family is informed of today's findings and plan. I discussed this case with my attending Dr. Rowley. Undiagnosed new problem with uncertain prognosis? @ -No Drug Therapy requiring intensive monitoring for toxicity (Heparin, Nitro, Insulin, Cardizem)? @ -No Were any procedures done? @ -No Diagnosis/symptom? @ -Alcohol intoxication Acute, or Chronic, or Acute on Chronic? @ -Acute Uncomplicated (without systemic symptoms) or Complicated (systemic symptoms)? @ -Complicated Side effects of treatment? @ -No Exacerbation, Progression, or Severe Exacerbation? @ -No Poses a threat to life or bodily function? How? (Chest pain, [place], [place], pneumonia, PE, COPD, DKA, ARF, appy, cholecystitis, CVA, Diverticulitis, Homicidal, Suicidal, threat to staff... and all critical care pts) @ -Yes - Lab Data Result diagrams: 12/08/23 16:52 12/08/23 16:52 Lab Results 12/08/23 12/08/23 Range/Units 16:52 16:52 WBC 4.7 (3.8-10.6) k/uL RBC 4.41 (4.30-5.90) m/uL Hgb 14.0 (13.0-17.5) gm/dL Hct 44.2 (39.0-53.0) % MCV 100.3 H (80.0-100.0) fL MCH 31.8 (25.0-35.0) pg MCHC 31.7 (31.0-37.0) g/dL RDW 14.2 (11.5-15.5) % Plt Count 597 H (150-450) k/uL MPV 6.6 Neutrophils % 54 % Lymphocytes % 34 % Monocytes % 6 % Eosinophils % 1 % Basophils % 1 % Neutrophils # 2.6 (1.3-7.7) k/uL Lymphocytes # 1.6 (1.0-4.8) k/uL Monocytes # 0.3 (0-1.0) k/uL Eosinophils # 0.1 (0-0.7) k/uL Basophils # 0.1 (0-0.2) k/uL Macrocytosis Slight Sodium 145 (137-145) mmol/L Potassium 4.7 (3.5-5.1) mmol/L Chloride 107 (98-107) mmol/L Carbon Dioxide 28 (22-30) mmol/L Anion Gap 10 mmol/L BUN 15 (9-20) mg/dL Creatinine 1.06 (0.66-1.25) mg/dL Est GFR (CKD-EPI)AfAm 86 (>60 ml/min/1.73 sqM) Est GFR (CKD-EPI)NonAf 74 (>60 ml/min/1.73 sqM) Glucose 113 H (74-99) mg/dL Calcium 9.4 (8.4-10.2) mg/dL Phosphorus 4.9 H (2.5-4.5) mg/dL Magnesium 2.3 (1.6-2.3) mg/dL Total Bilirubin 0.3 (0.2-1.3) mg/dL AST 71 H (17-59) U/L ALT 78 H (4-49) U/L Alkaline Phosphatase 115 (38-126) U/L Total Protein 7.2 (6.3-8.2) g/dL Albumin 4.4 (3.5-5.0) g/dL Disposition Clinical Impression: Alcohol use disorder, Alcohol intoxication Disposition: ADMITTED IP TO THIS HOSP Condition: Fair Referrals: None,Stated [Primary Care Provider] - 1-2 days Forms: AA Meetings Dist 22 & 24 - OPH, Adult Foster Snf List, Outpatient Counseling, Inp Substance Abuse Facilities Time of Disposition: 19:10
[2023-12-08 17:04] LABS: Basophils # (A) 0.1 k/uL (0-0.2); Basophils % (A) 1 %; Eosinophils # (A) 0.1 k/uL (0-0.7); Eosinophils % (A) 1 %; HCT 44.2 % (39.0-53.0); Lymphocytes # (A) 1.6 k/uL (1.0-4.8); Lymphocytes % (A) 34 %; MCH 31.8 pg (25.0-35.0); MCHC 31.7 g/dL (31.0-37.0); MCV 100.3 fL (80.0-100.0); Macrocytosis Slight; Mean Platelet Volume 6.6; Monocytes # (A) 0.3 k/uL (0-1.0); Monocytes % (A) 6 %; Neutrophils # (A) 2.6 k/uL (1.3-7.7); Neutrophils % (A) 54 %; Platelet Count 597 k/uL (150-450); RBC 4.41 m/uL (4.30-5.90); RDW 14.2 % (11.5-15.5); WBC 4.7 k/uL (3.8-10.6)
[2023-12-08 17:45] LABS: ALT 78 U/L (4-49); AST 71 U/L (17-59); African American GFR (CKD) 86 (>60 ml/min/1.73 sqM); Albumin 4.4 g/dL (3.5-5.0); Alkaline Phosphatase 115 U/L (38-126); Anion Gap 10 mmol/L; Blood Urea Nitrogen 15 mg/dL (9-20); Calcium 9.4 mg/dL (8.4-10.2); Carbon Dioxide 28 mmol/L (22-30); Chloride 107 mmol/L (98-107); Glucose 113 mg/dL (74-99); Magnesium 2.3 mg/dL (1.6-2.3); Non-African American GFR(CKD) 74 (>60 ml/min/1.73 sqM); Phosphorus 4.9 mg/dL (2.5-4.5); Potassium 4.7 mmol/L (3.5-5.1); Sodium 145 mmol/L (137-145); Total Bilirubin 0.3 mg/dL (0.2-1.3); Total Protein 7.2 g/dL (6.3-8.2)
--- NOTE | 2023-12-08 18:24 | CT ---
EXAMINATION TYPE: CT brain marla wo con DATE OF EXAM: 12/08/2023 COMPARISON: 02/13/2023 HISTORY: 63-year-old male with confusion and pain after AMS, fall CT DLP: 1466.7 mGycm Automated exposure control for dose reduction was used. Technique: Examination of the head was done in axial plane without intravenous contrast. Coronal and sagittal reconstructions performed. CT of the cervical spine was obtained in axial plane without intravenous injection of contrast mater ial. Coronal and sagittal reformatted images were obtained from the axial views for evaluation of f ractures, spinal alignment and canal. FINDINGS: Head: There is no evidence of acute intracranial hemorrhage, acute ischemic changes, mass, mass-effect, or extra-axial fluid collection. There is no effacement of cerebral sulci or basal subarachnoid cister ns. There is no hydrocephalus. There is no midline shift. Collins-white matter distinction is preserv ed. Rightward nasal septal deviation. Mild mucosal thickening right maxillary sinus and ethmoid air cells . Orbits and globes are intact. Mastoid air cells well pneumatized. There may be a mild anterior right temporal scalp contusion. No underlying calvarial fracture. Cervical spine: No craniocervical junction abnormality, predental space widening, or prevertebral soft tissue swellin g. Degenerative change at the C1 to dictation. Moderately advanced discogenic endplate changes specially C4-C5 and C5-C6. Significant disc height lo ss and endplate sclerosis. Disc osteophyte complexes contribute to at least mild spinal canal stenosi s, possible moderate at C5-C6. Corresponding uncovertebral joint arthropathy at these levels. Some scattered mild facet arthropathy noted. There is preserved alignment of the cervical spine. No acute fracture is seen Moderate to severe right neuroforaminal stenosis at C4-C5 and moderate on the right at C6/C7. Sagittal and coronal reformatted images confirm above findings. COMBINED IMPRESSION: 1. Mild anterior right temporal scalp contusion. No acute intracranial abnormality seen. 2. No acute fracture or malalignment of the cervical spine. Moderate to advanced spondylotic change e specially C4-C6 levels.
[2023-12-08] MEDS ORDERED: NALOXONE 0.4 MG/ML 1 ML VIAL IV PRN (19:07)
[2023-12-08] MEDS ORDERED: LORazepam 2 MG/ML INJ IV PRN ×2 (19:09)
[2023-12-08] MEDS: THIAMINE 100 MG/ML 2 ML VIAL IM STA (19:50)
[2023-12-08] MEDS: ACETAMINOPHEN TAB 325 MG TAB PO STA (19:50)
[2023-12-08] MEDS: SODIUM CHLORIDE 0.9% 1,000 ML IV SCH (19:51)
[2023-12-08 21:26] LABS: Appearance,Urine Clear (Clear); Bilirubin,Urine Negative (Negative); Blood,Urine Negative (Negative); Color,Urine Light Yellow; Glucose,Urine (UA) Negative (Negative); Ketones,Urine Negative (Negative); Leukocyte Esterase,Urine Negative (Negative); Nitrite,Urine Negative (Negative); Protein,Urine Trace (Negative); Specific Gravity,Urine 1.018 (1.001-1.035); Urobilinogen,Urine <2.0 mg/dL (<2.0)
[2023-12-08] MEDS: KETOROLAC 15 MG/ML 1 ML VIAL IVP PRN (22:16)
[2023-12-08 22:20] LABS: Amphetamine Screen,Urine Not Detected (NotDetected); Barbiturate Screen,Urine Detected (NotDetected); Benzodiazepines Screen,Urine Detected (NotDetected); Cocaine Screen,Urine Not Detected (NotDetected); Methadone Screen, Urine Not Detected (NotDetected); Opiate Screen,Urine Not Detected (NotDetected); Oxycodone Screen, Urine Not Detected (NotDetected); Phencyclidine Screen,Urine Not Detected (NotDetected); Tricyclic Antidepressant,Urine Not Detected (NotDetected); Urn Cannabinoid Scrn Detected (NotDetected)
--- NOTE | 2023-12-09 01:04 | XR ---
EXAMINATION TYPE: XR shoulder complete RT DATE OF EXAM: 12/09/2023 CLINICAL HISTORY: Fall injury with worsening pain TECHNIQUE: Three views of the right shoulder are obtained. COMPARISON: None. FINDINGS: There is no acute fracture/dislocation evident in the right shoulder. Mild narrowing invol ving the acromioclavicular joint. Glenohumeral joint is maintained. Overlying sternal wires and media stinal clips are partially imaged. The visualized ribs are intact and unremarkable. IMPRESSION: There is no acute fracture or dislocation in the right shoulder.
[2023-12-09] MEDS: LORazepam 2 MG/ML INJ IV PRN (02:34)
[2023-12-09] MEDS: THIAMINE 100 MG TAB PO SCH (08:27)
--- NOTE | 2023-12-09 11:09 | P.HPIM ---
History of Present Illness H&P Date: 12/09/23 History of present illness; patient is 63-year-old gentleman past medical history significant for alcohol abuse, hyperlipidemia, BPH was brought to the ER for psychiatric evaluation. Patient has history of alcohol abuse and admits to drinking a pint to half a gallon per day of alcohol. Daughter who accompanied him in the ER petitioned him as she thinks that the patient is drinking himself to . Patient is very depressed and somber. Denies any homicidal or suicidal thoughts. There is no complaint of auditory or visual hallucinations. Patient had a fall in the ER. Initial lab work done in the ER showed WBC 4.7, hemoglobin 14, platelet count 597, sodium 141, potassium 4.7, BUN 15, creatinine 1.06, glucose 113, phosphorus 4.9 AST 71 ALT 78 UA negative for any infection Urine drug screen positive for barbiturates, benzodiazepines, marijuana Shoulder x-ray showed no acute fracture or dislocation of right shoulder CT head done showed no acute intracranial process. There may be mild anterior right temporal scalp contusion CT cervical spine negative for any fractures or malalignment of the cervical spine Patient admitted to internal medicine service REVIEW OF SYSTEMS: CONSTITUTIONAL: No fever, complaining of generalized weakness HEENT: No recent visual problems or hearing problems. Denied any sore throat. CARDIOVASCULAR: No chest pain, orthopnea, PND, no palpitations, no syncope. PULMONARY: No shortness of breath, no cough, no hemoptysis. GASTROINTESTINAL: No diarrhea, no nausea, no vomiting, no abdominal pain. NEUROLOGICAL: No headaches, no weakness, no numbness. HEMATOLOGICAL: Denies any bleeding or petechiae. GENITOURINARY: Denies any burning micturition, frequency, or urgency. MUSCULOSKELETAL/RHEUMATOLOGICAL: Denies any joint pain, swelling, or any muscle pain. ENDOCRINE: Denies any polyuria or polydipsia. The rest of the 14-point review of systems is negative. PHYSICAL EXAMINATION: GENERAL: The patient is alert and oriented x3, not in any acute distress. Well developed, well nourished. HEENT: Pupils are round and equally reacting to light. EOMI. No scleral icterus. No conjunctival pallor. Normocephalic, atraumatic. No pharyngeal erythema. No thyromegaly. CARDIOVASCULAR: S1 and S2 present. No murmurs, rubs, or gallops. PULMONARY: Chest is clear to auscultation, no wheezing or crackles. ABDOMEN: Soft, nontender, nondistended, normoactive bowel sounds. No palpable organomegaly. MUSCULOSKELETAL: No joint swelling or deformity. EXTREMITIES: No cyanosis, clubbing, or pedal edema. NEUROLOGICAL: Gross neurological examination did not reveal any focal deficits. SKIN: No rashes. Assessment and plan Alcohol abuse Major depression impending alcohol detox Hyperlipidemia BPH Monitor vital signs Monitor CBC Monitor CMP Continue telemetry monitoring Fall precaution Seizure precautions Continue CIWA protocol Continue high-dose thiamine and folic acid Continue Ativan per [facility] protocol Psych consult Labs and medication were reviewed.. Continue same treatment. Continue with symptomatic treatment. Resume home medication. Monitor labs and vitals. DVT and GI prophylaxis. Further recommendations as per clinical course of the patient Dictation was produced using [employer] dictation software. please excuse any grammatical, word or spelling errors. Past Medical History Past Medical History: Coronary Artery Disease (CAD), Hyperlipidemia History of Any Multi-Drug Resistant Organisms: None Reported Past Surgical History: Coronary Bypass/CABG Additional Past Surgical History / Comment(s): Mitral valve replacement 09/03/2021 Past Psychological History: Anxiety, Depression Smoking Status: Never smoker Past Alcohol Use History: Abuse, Daily Past Drug Use History: None Reported - Past Family History Sister(s) Family Medical History: Cancer Medications and Allergies Home Medications Medication Instructions Recorded Confirmed Type Aspirin EC [Ecotrin Low Dose] 81 mg PO HS 02/15/22 12/08/23 History Simvastatin [Zocor] 40 mg PO HS 02/15/22 12/08/23 History Tamsulosin [Flomax] 0.4 mg PO HS 02/15/22 12/08/23 History Multivitamins, Thera [Multivitamin 1 tab PO HS 12/08/23 12/08/23 History (formulary)] Triamcinolone 0.5% Cream [Kenalog 1 applic TOPICAL BID PRN 12/08/23 12/08/23 History 0.5% Cream] Allergies Allergy/AdvReac Type Severity Reaction Status Date / Time bupropion [From Wellbutrin] Allergy Unknown Verified 12/08/23 21:37 Childhood Penicillins Allergy Rash/Hives Verified 12/08/23 21:37 Physical Exam Vitals: Vital Signs Temp Pulse Pulse Resp BP BP Pulse Ox 12/09/23 07:00 98.2 F 89 17 132/76 95 12/09/23 02:11 98.3 F 92 17 121/74 94 L 12/08/23 21:54 97.8 F 95 18 127/76 94 L 12/08/23 21:30 98.8 F 84 18 101/64 94 L 12/08/23 15:56 99 F 96 16 130/85 96 Intake and Output 12/08/23 12/09/23 12/09/23 22:59 06:59 14:59 Intake Total 118 Balance 118 Intake: Oral 118 Other: Voiding Method Toilet # Voids 0 Weight 72.575 kg Results CBC & Chem 7: 12/08/23 16:52 12/08/23 16:52 Labs: Abnormal Lab Results - Last 24 Hours (Table) 12/08/23 12/08/23 12/08/23 Range/Units 16:52 16:52 21:01 MCV 100.3 H (80.0-100.0) fL Plt Count 597 H (150-450) k/uL Glucose 113 H (74-99) mg/dL Phosphorus 4.9 H (2.5-4.5) mg/dL AST 71 H (17-59) U/L ALT 78 H (4-49) U/L Urine Protein Trace H (Negative) Ur Barbiturates Screen Detected H (NotDetected) U Benzodiazepines Scrn Detected H (NotDetected) U Marijuana (THC) Screen Detected H (NotDetected)
--- NOTE | 2023-12-09 15:11 | P.HP ---
Psychiatric H&P - . H&P Date: 12/09/23 History & Physical: Allergies Allergy/AdvReac Type Severity Reaction Status Date / Time bupropion from Wellbutrin Allergy Unknown Verified 12/08/23 21:37 Childhood Penicillins Allergy Rash/Hives Verified 12/08/23 21:37 Vital Signs Temp 98.2 F 12/09/23 07:00 Pulse 89 12/09/23 07:00 Resp 17 12/09/23 07:00 BP 132/76 12/09/23 07:00 Pulse Ox 95 12/09/23 07:00 FiO2 Intake & Output 12/08/23 12/09/23 12/09/23 18:59 06:59 18:59 Intake Total 118 Balance 118 Weight 72.575 kg 72.575 kg Intake: Oral 118 Other: Voiding Method Toilet # Voids 0 Laboratory Last Values WBC 4.7 k/uL (3.8-10.6) 12/08/23 16:52 RBC 4.41 m/uL (4.30-5.90) 12/08/23 16:52 Hgb 14.0 gm/dL (13.0-17.5) 12/08/23 16:52 Hct 44.2 % (39.0-53.0) 12/08/23 16:52 MCV 100.3 fL (80.0-100.0) H 12/08/23 16:52 MCH 31.8 pg (25.0-35.0) 12/08/23 16:52 MCHC 31.7 g/dL (31.0-37.0) 12/08/23 16:52 RDW 14.2 % (11.5-15.5) 12/08/23 16:52 Plt Count 597 k/uL (150-450) H 12/08/23 16:52 MPV 6.6 12/08/23 16:52 Neutrophils % 54 % 12/08/23 16:52 Lymphocytes % 34 % 12/08/23 16:52 Monocytes % 6 % 12/08/23 16:52 Eosinophils % 1 % 12/08/23 16:52 Basophils % 1 % 12/08/23 16:52 Neutrophils # 2.6 k/uL (1.3-7.7) 12/08/23 16:52 Lymphocytes # 1.6 k/uL (1.0-4.8) 12/08/23 16:52 Monocytes # 0.3 k/uL (0-1.0) 12/08/23 16:52 Eosinophils # 0.1 k/uL (0-0.7) 12/08/23 16:52 Basophils # 0.1 k/uL (0-0.2) 12/08/23 16:52 Macrocytosis Slight 12/08/23 16:52 Sodium 145 mmol/L (137-145) 12/08/23 16:52 Potassium 4.7 mmol/L (3.5-5.1) 12/08/23 16:52 Chloride 107 mmol/L (98-107) 12/08/23 16:52 Carbon Dioxide 28 mmol/L (22-30) 12/08/23 16:52 Anion Gap 10 mmol/L 12/08/23 16:52 BUN 15 mg/dL (9-20) 12/08/23 16:52 Creatinine 1.06 mg/dL (0.66-1.25) 12/08/23 16:52 Est GFR (CKD-EPI)AfAm 86 (>60 ml/min/1.73 sqM) 12/08/23 16:52 Est GFR (CKD-EPI)NonAf 74 (>60 ml/min/1.73 sqM) 12/08/23 16:52 Glucose 113 mg/dL (74-99) H 12/08/23 16:52 Calcium 9.4 mg/dL (8.4-10.2) 12/08/23 16:52 Phosphorus 4.9 mg/dL (2.5-4.5) H 12/08/23 16:52 Magnesium 2.3 mg/dL (1.6-2.3) 12/08/23 16:52 Total Bilirubin 0.3 mg/dL (0.2-1.3) 12/08/23 16:52 AST 71 U/L (17-59) H 12/08/23 16:52 ALT 78 U/L (4-49) H 12/08/23 16:52 Alkaline Phosphatase 115 U/L (38-126) 12/08/23 16:52 Total Protein 7.2 g/dL (6.3-8.2) 12/08/23 16:52 Albumin 4.4 g/dL (3.5-5.0) 12/08/23 16:52 Urine Color Light Yellow 12/08/23 21: Urine Appearance Clear (Clear) 12/08/23 21: Urine pH 6.0 (5.0-8.0) 12/08/23 21:01 Ur Specific Cocoa 1.018 (1.001-1.035) 12/08/23 21:01 Urine Protein Trace (Negative) H 12/08/23 21: Urine Glucose (UA) Negative (Negative) 12/08/23 21: Urine Ketones Negative (Negative) 12/08/23 21: Urine Blood Negative (Negative) 12/08/23 21: Urine Nitrite Negative (Negative) 12/08/23 21: Urine Bilirubin Negative (Negative) 12/08/23 21: Urine Urobilinogen <2.0 mg/dL (<2.0) 12/08/23 21:01 Ur Leukocyte Esterase Negative (Negative) 12/08/23 21:01 Urine Opiates Screen Not Detected (NotDetected) 12/08/23 21:01 Ur Oxycodone Screen Not Detected (NotDetected) 12/08/23 21:01 Urine Methadone Screen Not Detected (NotDetected) 12/08/23 21:01 Ur Barbiturates Screen Detected (NotDetected) H 12/08/23 21:01 U Tricyclic Antidepress Not Detected (NotDetected) 12/08/23 21:01 Ur Phencyclidine Scrn Not Detected (NotDetected) 12/08/23 21:01 Ur Amphetamines Screen Not Detected (NotDetected) 12/08/23 21:01 U Methamphetamines Scrn Not Detected (NotDetected) 12/08/23 21:01 U Benzodiazepines Scrn Detected (NotDetected) H 12/08/23 21:01 Urine Cocaine Screen Not Detected (NotDetected) 12/08/23 21:01 U Marijuana (THC) Screen Detected (NotDetected) H 12/08/23 21:01 12/09/23 1 IDENTIFYING DATA: This patient is a 63-year-old male lives alone in the home. Has 2 children. Retired collects SSD. REASON FOR REFERRAL: Psychiatry was consulted for psychiatric evaluation. HISTORY OF PRESENT ILLNESS: The patient presented to the hospital on 12/07, his daughter brought him to the ER and told the nurse that he is telling her he wants to drink himself to . She stated that he she is afraid to leave him alone. She is very tearful, fearing that she will find her father at some point, because of his drinking. He repeatedly denied that he has suicidal thoughts or wishes. He denied that he spoke with his daughter and expressed suicidal thoughts. He admitted that he has had long history of problems with alcohol however he minimizes the severity. Patient does claim that he has several guns at home, lives alone. He described a recurrent periods of excessive alcohol use with long periods of sobriety; up to 5 years. He has been involved with Alcoholics Anonymous for 20 years. He has a sponsor and a home group. He minimizes severity of his depression and anxiety. He denied fe eling hopeless, helpless or worthless. He was fairly focused on going home. He denied problems with sleep, energy or appetite (this is in contrast to the history provided by his daughter). Poor impulse control, poor self-care according to patient's daughter. He denied anxiety. He denied experiencing periods of elevated mood or sustained irritability suggestive of jayla. He denied a history of paranoia, confusion or perceptual disturbances. He denied use of other drugs to get high, help her sleep or changes mood, besides marijuana. Electric Installer spoke with patient's daughter outside of the room who states that patient has a long history of drinking alcohol, unable to care for himself, falling at home and also did mention that he wanted to drink himself to . She states that she is willing to fill out a petition due to patient's severity of his mental health issues and inability to care for himself. Claims that for the past year he was been drinking alcohol more frequently. PAST PSYCHIATRIC HISTORY: He denied prior psychiatric hospitalizations. He denied history of mental health or psychiatric services. His primary care provider is prescribing Xanax and citalopram for treatment of depression and anxiety. However, was admitted to this unit in January of 2022 PAST MEDICAL HISTORY: as per EMR. ALLERGIES: as per EMR. CHEMICAL DEPENDENCY HISTORY: as per HPI. FAMILY PSYCHIATRIC/SUBSTANCE USE HISTORY: denies SOCIAL HISTORY: Patient was born and raised in [facility], graduated high school. 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 Has 2 children. His been in halfway once for drinking and driving, states he has 3 DUIs. MENTAL STATUS EXAM: General Appearance: Patient appears to be stated age is alert, pleasant, and cooperative. Patient appears to have fair hygiene and grooming wearing hospital gown with fair eye contact. Behavior: [Patient is calmly lying in bed without any agitated behavior. Minimizing need for treatment. Guarded, evasive Speech: Patient's speech is fluent and nonpressured. Mood/Affect: Patient reports their mood is "just fine.", affect is congruent Suicidality/Homicidality: Patient denies having any suicidal or homicidal ideation intent or plan. Perceptions: Patient denies any visual hallucinations and denies any auditory hallucinations Though content/process: There is no evidence of any delusional thought content and thought process is linear and goal-directed. Fairly evasive, minimizing his alcohol use and also his depression. Memory and concentration: AOX3, grossly intact for the purposes of this session. Can not spell "WORLD" backwards Judgment and insight: Poor/impulsive IMPRESSIONS: Depressive disorder unspecified Alcohol use disorder, severe dependence Cannabis use disorder mild PLAN: -At this time patient DOES meet criteria for inpatient psychiatric admission due to patient's poor impulse control, poor insight and judgment, depression and anxiety and allegedly making threats to end his life with alcohol. -Patient DOES NOT have decision making capacity at this time and is unable to reason through and communicate/appreciate the risks, benefits and alternatives to treatment. -Would recommend the following medication changes/additions: Trazodone 50 mg nightly as needed for insomnia, Librium 20 mg 3 times daily scheduled for alcohol withdrawal. -CIWA protocol with PRN Ativan for alcohol withdrawal. Continue to monitor vital signs. -Continue 1:1 sitter for safety until patient is safely admitted to the psychiatric unit. -Cannot leave AMA at this time. Patient will need a petition and certification if attempting to leave AMA. -When medically stable, patient is eligible for transfer to a psych bed when available. -Patient's daughter/guardian states that she is willing to fill out a petition due to her significant concerns about patient's declining mental health. -Communicated plan to patient's nurse -Psychiatry will sign off at this time -Please contact with any questions. 03/13/24 15:03 12/09/23 15:10
[2023-12-09] MEDS: TAMSULOSIN 0.4 MG CAP.ER.24H PO SCH (20:11)
[2023-12-09] MEDS: ASPIRIN 81 MG PO SCH (20:11)
[2023-12-09] MEDS: ATORVASTATIN 20 MG TAB PO SCH (20:11)
[2023-12-09] MEDS: MULTIVITAMINS, THERA 1 EACH TAB PO SCH (20:11)
--- NOTE | 2023-12-10 12:54 | P.DS ---
Providers Date of admission: 12/08/23 20:45 Expected date of discharge: 12/10/23 Attending physician: Kaylah Lieberman Consults: 12/08/23 19:07 Consult Physician Urgent Consulting Provider: Prasanth Mcpherson Reason/Comments: mental health petition Do you want consulting provider notified?: Yes, Notify in am Primary care physician: Stated None Hospital Course: Discharge diagnoses; Alcohol abuse Major depression impending alcohol detox Hyperlipidemia BPH Hospital course; patient is 63-year-old gentleman past medical history significant for alcohol abuse, hyperlipidemia, BPH was brought to the ER for psychiatric evaluation. Patient has history of alcohol abuse and admits to drinking a pint to half a gallon per day of alcohol. Daughter who accompanied him in the ER petitioned him as she thinks that the patient is drinking himself to . Patient is very depressed and somber. Denies any homicidal or suicidal thoughts. There is no complaint of auditory or visual hallucinations. Patient had a fall in the ER. Initial lab work done in the ER showed WBC 4.7, hemoglobin 14, platelet count 597, sodium 141, potassium 4.7, BUN 15, creatinine 1.06, glucose 113, phosphorus 4.9 AST 71 ALT 78 UA negative for any infection Urine drug screen positive for barbiturates, benzodiazepines, marijuana Shoulder x-ray showed no acute fracture or dislocation of right shoulder CT head done showed no acute intracranial process. There may be mild anterior right temporal scalp contusion CT cervical spine negative for any fractures or malalignment of the cervical spine Patient admitted to internal medicine service 12/09. Patient seen examined. Patient was eval by psychiatry, they recommended that at this time patient meet criteria for inpatient psychiatric admission due to patient's poor impulse control, poor insight and judgment, depression and anxiety and allegedly making threats to end his life with alcohol, recommend transfer to inpatient psych once medically stable. Patient is currently medically stable for transfer. Currently patient being transferred to inpatient psych in stable condition PHYSICAL EXAMINATION: GENERAL: The patient is alert and oriented x3, not in any acute distress. Well developed, well nourished. HEENT: Pupils are round and equally reacting to light. EOMI. No scleral icterus. No conjunctival pallor. Normocephalic, atraumatic. No pharyngeal erythema. No thyromegaly. CARDIOVASCULAR: S1 and S2 present. No murmurs, rubs, or gallops. PULMONARY: Chest is clear to auscultation, no wheezing or crackles. ABDOMEN: Soft, nontender, nondistended, normoactive bowel sounds. No palpable organomegaly. MUSCULOSKELETAL: No joint swelling or deformity. EXTREMITIES: No cyanosis, clubbing, or pedal edema. NEUROLOGICAL: Gross neurological examination did not reveal any focal deficits. SKIN: No rashes. Dictation was produced using [employer] dictation software. please excuse any grammatical, word or spelling errors. Patient Condition at Discharge: Fair Plan - Discharge Summary New Discharge Prescriptions: New Thiamine [Vitamin B-1] 100 mg PO DAILY #30 tab Continue Tamsulosin [Flomax] 0.4 mg PO HS Simvastatin [Zocor] 40 mg PO HS Aspirin EC [Ecotrin Low Dose] 81 mg PO HS Multivitamins, Thera [Multivitamin (formulary)] 1 tab PO HS Triamcinolone 0.5% Cream [Kenalog 0.5% Cream] 1 applic TOPICAL BID PRN PRN Reason: Rash Discharge Medication List Aspirin EC [Ecotrin Low Dose] 81 mg PO HS 02/15/22 [History] Simvastatin [Zocor] 40 mg PO HS 02/15/22 [History] Tamsulosin [Flomax] 0.4 mg PO HS 02/15/22 [History] Multivitamins, Thera [Multivitamin (formulary)] 1 tab PO HS 12/08/23 [History] Triamcinolone 0.5% Cream [Kenalog 0.5% Cream] 1 applic TOPICAL BID PRN 12/08/23 [History] Thiamine [Vitamin B-1] 100 mg PO DAILY #30 tab 12/10/23 [Rx] Follow up Appointment(s)/Referral(s): None,Stated [Primary Care Provider] - 1-2 days Discharge/Stand Alone Forms: AA Meetings Dist & 24 - [facility], Adult Foster Assisted List, Outpatient Counseling, Inp Substance Abuse Facilities Discharge Disposition: TRANSFER TO PSYCH HOSP/UNIT
[2023-12-10] MEDS: traZODone HCL 50 MG TAB PO PRN (22:44)
[2023-12-11 07:58] VITALS: BP 135/84; PULSE 78; RESP 18; TEMP 98.1
[2023-12-11] MEDS ORDERED: NALTREXONE HCL 50 MG TAB PO STA (11:48)
--- NOTE | 2023-12-11 11:57 | P.PN ---
Progress Note - Text Progress Note Date: 12/11/23 Interval history: Patient was seen today for psychiatric follow-up on the medical floors. Patient continues to have a one-to-one sitter for safety. Patient was seen earlier wandering the hallways with his sitter, drinking coffee. He was also socializing with his nurse. He appears to be in brighter spirits today, improve affect today. Claims that his mood is "good" denying any depression. Denies any anxiety. States that his sleep has been on and off mainly due to being in the hospital. Claims that Librium has been helping with his alcohol withdrawal symptoms, states that he is doing much better. He continues to endorse wanting to abstain from alcohol states that it has affected his life enough. He states that he is motivated to do other activities in his life. He appears to be more future oriented today, claims that he wants to live for his life and his sobriety. He also states that he has a AA meetings that he wants to go to and also [facility] counseling. He was agreeable to try naltrexone for alcohol cravings. Claims that his appetite is fair, he is denying any suicidal homicidal ideations intent or plan. Denying any side effects of medications. Bi Application Developer spoke with patient's daughter outside the room who expressed her concerns about the dynamic of her being the daughter and also his cauterant guardian. States that most of his issues are related to his drinking, she states that she will try to keep a closer eye on him and try to push for him to get the medications and also into [facility] once he is discharged. She claims that the guns have been removed from the house. MENTAL STATUS EXAM: General Appearance: Patient appears to be in glasses, stated age is alert, pleasant, and cooperative. Patient appears to have fair hygiene and grooming wearing hospital gown with fair eye contact. Behavior: [Patient is calmly lying in bed without any agitated behavior. More cooperative today. Speech: Patient's speech is fluent and nonpressured. Mood/Affect: Patient reports their mood is "good", affect is congruent and euthymic Suicidality/Homicidality: Patient denies having any suicidal or homicidal ideation intent or plan. Perceptions: Patient denies any visual hallucinations and denies any auditory hallucinations Though content/process: There is no evidence of any delusional thought content and thought process is linear and goal-directed. Future oriented Memory and concentration: AOX3, grossly intact for the purposes of this session. Judgment and insight: Improving mildly IMPRESSIONS: Depressive disorder unspecified Alcohol use disorder, severe dependence Cannabis use disorder mild PLAN: -At this time patient DOES NOT criteria for inpatient psychiatric admission due to patient mainly dealing with the alcohol use disorder as his primary diagnosis. Patient is not currently endorsing any thoughts of self-harm or harm to others and is future oriented, guns and weapons have been removed from the house. Guardian is on board with patient being discharged today back home with outpatient follow-up. -Would recommend the following medication changes/additions: Trazodone 50 mg nightly as needed for insomnia, Librium down to 10 mg 3 times daily, last dose can be given prior to patient being discharged today. Patient is also agreeable to try naltrexone p.o. 50 mg daily for alcohol cravings. -One-to-one sitter can be discontinued at this time. -Patient will be given resources for substance use treatment along with [facility] for psychiatric follow-up once he is discharged. -Communicated plan to patient's nurse -Psychiatry will sign off at this time -Bi Application Developer will complete a negative certificate and will be sent to the medical floor. -Please contact with any questions.
--- NOTE | 2023-12-11 12:29 | P.PN ---
Subjective Progress Note Date: 12/11/23 patient is 63-year-old gentleman past medical history significant for alcohol abuse, hyperlipidemia, BPH was brought to the ER for psychiatric evaluation. Patient has history of alcohol abuse and admits to drinking a pint to half a gallon per day of alcohol. Daughter who accompanied him in the ER petitioned him as she thinks that the patient is drinking himself to . Patient is very depressed and somber. Denies any homicidal or suicidal thoughts. There is no complaint of auditory or visual hallucinations. Patient had a fall in the ER. Initial lab work done in the ER showed WBC 4.7, hemoglobin 14, platelet count 597, sodium 141, potassium 4.7, BUN 15, creatinine 1.06, glucose 113, phosphorus 4.9 AST 71 ALT 78 UA negative for any infection Urine drug screen positive for barbiturates, benzodiazepines, marijuana Shoulder x-ray showed no acute fracture or dislocation of right shoulder CT head done showed no acute intracranial process. There may be mild anterior right temporal scalp contusion CT cervical spine negative for any fractures or malalignment of the cervical spine Patient admitted to internal medicine service 12/09. Patient seen examined. Patient was eval by psychiatry, they recommended that at this time patient meet criteria for inpatient psychiatric admission due to patient's poor impulse control, poor insight and judgment, depression and anxiety and allegedly making threats to end his life with alcohol, recommend transfer to inpatient psych once medically stable. Patient is currently medically stable for transfer. Currently patient being transferred to inpatient psych in stable condition 12/10. Patient seen examined .patient was reassessed by psychiatry this morning, they suggested at this time patient does not meet criteria for inpatient psych admission, they recommended outpatient follow-up. Being discharged on naltrexone REVIEW OF SYSTEMS: CONSTITUTIONAL: No fever, no malaise,. CARDIOVASCULAR: No chest pain, no palpitations, no syncope. PULMONARY: No shortness of breath, no cough, GASTROINTESTINAL: No diarrhea, no nausea, no vomiting, no abdominal pain. NEUROLOGICAL: No headaches, no weakness, PHYSICAL EXAMINATION: GENERAL: The patient is alert and oriented x3, not in any acute distress. Well developed, well nourished. HEENT: Pupils are round and equally reacting to light. EOMI. No scleral icterus. No conjunctival pallor. Normocephalic, atraumatic. No pharyngeal erythema. No thyromegaly. CARDIOVASCULAR: S1 and S2 present. No murmurs, rubs, or gallops. PULMONARY: Chest is clear to auscultation, no wheezing or crackles. ABDOMEN: Soft, nontender, nondistended, normoactive bowel sounds. No palpable organomegaly. MUSCULOSKELETAL: No joint swelling or deformity. EXTREMITIES: No cyanosis, clubbing, or pedal edema. NEUROLOGICAL: Gross neurological examination did not reveal any focal deficits. SKIN: No rashes. Assessment and plan Alcohol abuse Major depression impending alcohol detox Hyperlipidemia BPH Plan; Psych reevaluated patient, recommend no longer need for inpatient psych admission. Recommended outpatient follow-up. Being discharged on naltrexone Labs and medication were reviewed.. Continue same treatment. Continue with symptomatic treatment. Resume home medication. Monitor labs and vitals. DVT and GI prophylaxis. Further recommendations as per clinical course of the patient Dictation was produced using [email or web address] dictation software. please excuse any grammatical, word or spelling errors. Objective - Vital Signs Vital signs: Vital Signs Temp 98.1 F 12/11/23 07:00 Pulse 78 12/11/23 07:00 Resp 18 12/11/23 07:00 BP 135/84 12/11/23 07:00 Pulse Ox 96 12/11/23 07:00 FiO2 Intake & Output 12/10/23 12/11/23 12/11/23 18:59 06:59 18:59 Intake Total 1118 Balance 1118 Intake: Oral 1118 Other: Voiding Method Toilet # Voids 2 3 - Labs CBC & Chem 7: 12/08/23 16:52 12/08/23 16:52
--- NOTE | 2023-12-11 12:31 | P.DS ---
Providers Date of admission: 12/08/23 20:45 Expected date of discharge: 12/11/23 Attending physician: Kaylah Lieberman Consults: 12/08/23 19:07 Consult Physician Urgent Consulting Provider: Prasanth Mcpherson Reason/Comments: mental health petition Do you want consulting provider notified?: Yes, Notify in am Primary care physician: Stated None Hospital Course: Discharge diagnoses; Alcohol abuse Major depression impending alcohol detox Hyperlipidemia BPH Hospital course; patient is 63-year-old gentleman past medical history significant for alcohol abuse, hyperlipidemia, BPH was brought to the ER for psychiatric evaluation. Patient has history of alcohol abuse and admits to drinking a pint to half a gallon per day of alcohol. Daughter who accompanied him in the ER petitioned him as she thinks that the patient is drinking himself to . Patient is very depressed and somber. Denies any homicidal or suicidal thoughts. There is no complaint of auditory or visual hallucinations. Patient had a fall in the ER. Initial lab work done in the ER showed WBC 4.7, hemoglobin 14, platelet count 597, sodium 141, potassium 4.7, BUN 15, creatinine 1.06, glucose 113, phosphorus 4.9 AST 71 ALT 78 UA negative for any infection Urine drug screen positive for barbiturates, benzodiazepines, marijuana Shoulder x-ray showed no acute fracture or dislocation of right shoulder CT head done showed no acute intracranial process. There may be mild anterior right temporal scalp contusion CT cervical spine negative for any fractures or malalignment of the cervical spine Patient admitted to internal medicine service 12/09. Patient seen examined. Patient was eval by psychiatry, they recommended that at this time patient meet criteria for inpatient psychiatric admission due to patient's poor impulse control, poor insight and judgment, depression and anxiety and allegedly making threats to end his life with alcohol, recommend transfer to inpatient psych once medically stable. Patient is currently medically stable for transfer. Currently patient being transferred to inpatient psych in stable condition 12/10. Patient seen examined .patient was reassessed by psychiatry this morning, they suggested at this time patient does not meet criteria for inpatient psych admission, they recommended outpatient follow-up. Being discharged on naltrexone PHYSICAL EXAMINATION: GENERAL: The patient is alert and oriented x3, not in any acute distress. Well developed, well nourished. HEENT: Pupils are round and equally reacting to light. EOMI. No scleral icterus. No conjunctival pallor. Normocephalic, atraumatic. No pharyngeal erythema. No thyromegaly. CARDIOVASCULAR: S1 and S2 present. No murmurs, rubs, or gallops. PULMONARY: Chest is clear to auscultation, no wheezing or crackles. ABDOMEN: Soft, nontender, nondistended, normoactive bowel sounds. No palpable organomegaly. MUSCULOSKELETAL: No joint swelling or deformity. EXTREMITIES: No cyanosis, clubbing, or pedal edema. NEUROLOGICAL: Gross neurological examination did not reveal any focal deficits. SKIN: No rashes. Dictation was produced using [email or web address] dictation software. please excuse any grammatical, word or spelling errors. Patient Condition at Discharge: Fair Plan - Discharge Summary New Discharge Prescriptions: New Naltrexone HCl [Revia] 50 mg PO DAILY #15 tab Thiamine [Vitamin B-1] 100 mg PO DAILY #30 tab Continue Tamsulosin [Flomax] 0.4 mg PO HS Simvastatin [Zocor] 40 mg PO HS Aspirin EC [Ecotrin Low Dose] 81 mg PO HS Multivitamins, Thera [Multivitamin (formulary)] 1 tab PO HS Triamcinolone 0.5% Cream [Kenalog 0.5% Cream] 1 applic TOPICAL BID PRN PRN Reason: Rash Discharge Medication List Aspirin EC [Ecotrin Low Dose] 81 mg PO HS 02/15/22 [History] Simvastatin [Zocor] 40 mg PO HS 02/15/22 [History] Tamsulosin [Flomax] 0.4 mg PO HS 02/15/22 [History] Multivitamins, Thera [Multivitamin (formulary)] 1 tab PO HS 12/08/23 [History] Triamcinolone 0.5% Cream [Kenalog 0.5% Cream] 1 applic TOPICAL BID PRN 12/08/23 [History] Thiamine [Vitamin B-1] 100 mg PO DAILY #30 tab 12/10/23 [Rx] Naltrexone HCl [Revia] 50 mg PO DAILY #15 tab 12/11/23 [Rx] Follow up Appointment(s)/Referral(s): None,Stated [Primary Care Provider] - 1-2 days Discharge/Stand Alone Forms: AA Meetings Dist & 24 - [facility], Adult [facility] List, Outpatient Counseling, In Substance Abuse Facilities Discharge Disposition: HOME SELF-CARE
[2023-12-11] MEDS: NALTREXONE HCL 50 MG TAB PO SCH (12:54)
== END 2023-12-11 13:11 | disposition home or self-care (01) ==
LOC: EC 15:47 → 6NMEDSUR 20:45
PROVIDERS: ADMIT Hospitalist; ATTEND Hospitalist
DX: F10.229 Alcohol dependence with intoxication, unspecified (principal); F10.239 Alcohol dependence with withdrawal, unspecified; F32.9 Major depressive disorder, single episode, unspecified; F43.21 Adjustment disorder with depressed mood; S00.03XA Contusion of scalp, initial encounter; E78.5 Hyperlipidemia, unspecified; N40.0 Benign prostatic hyperplasia without lower urinary tract symptoms; F41.9 Anxiety disorder, unspecified; Y90.8 Blood alcohol level of 240 mg/100 ml or more; R74.01 Elevation of levels of liver transaminase levels; F12.90 Cannabis use, unspecified, uncomplicated; W17.89XA Other fall from one level to another, initial encounter; Y92.238 Other place in hospital as the place of occurrence of the external cause; Z79.82 Long term (current) use of aspirin; Z79.899 Other long term (current) drug therapy; Z88.0 Allergy status to penicillin; Z88.8 Allergy status to other drugs, medicaments and biological substances; Z91.81 History of falling
CPT/HCPCS: 96376 ×4; 96361 ×3; 96375; 96372; 96374; 99285; 36415; 82075; 97161; 97166; 80053; 83735; 84100; 85025; 81003; 80306; 87635; 73030; 72125; 70450; G0378 ×4; J2060; J3411; J1885 ×4

== ENCOUNTER → 2024-09-12 | Outpatient (CLI) | payer MEDICARE ==
[2024-09-12 15:43] LABS: Hepatitis B Surface AB- Quant 3.5 mIU/mL
[2024-09-12 16:06] LABS: Basophils # (A) 0.02 X 10*3/uL (0.00-0.10); Basophils % (A) 0.4 %; Eosinophils # (A) 0.13 X 10*3/uL (0.04-0.35); Eosinophils % (A) 2.8 %; HCT 46.8 % (39.6-50.0); HGB 14.9 g/dL (13.0-17.0); Lymphocytes # (A) 0.88 X 10*3/uL (0.90-5.00); Lymphocytes % (A) 19.1 %; MCHC 31.8 g/dL (32.0-37.0); MCV 94.4 FL (80.0-97.0); Mean Platelet Volume 10.7 FL (9.5-12.2); Monocytes # (A) 0.36 X 10*3/uL (0.20-1.00); Monocytes % (A) 7.8 %; NRBC Per 100 WBC 0 X 10*3/uL (0.00-0.01); Neutrophils # (A) 3.19 X 10*3/uL (1.80-7.70); Neutrophils % (A) 69.5 %; Platelet Count 261 X 10*3/uL (140-440); RBC 4.96 X 10*6/uL (4.40-5.60); RDW 12.9 % (11.5-14.5)
[2024-09-12 16:14] LABS: Hepatitis B Surface Antigen Nonreactive (Nonreactive); Hepatitis C IgG Antibody Nonreactive (Nonreactive)
[2024-09-12 19:33] LABS: ALT 16 U/L (10-49); AST 21 U/L (14-35); Albumin 4.5 g/dL (3.8-4.9); Albumin/Globulin Ratio 1.88 Ratio (1.60-3.17); Alkaline Phosphatase 88 U/L (41-126); BUN/Creat Ratio 17.09 Ratio (12.00-20.00); Blood Urea Nitrogen 18.8 mg/dL (9.0-27.0); Calcium 9.9 mg/dL (8.7-10.3); Carbon Dioxide 17.5 mmol/L (21.6-31.8); Chloride 105 mmol/L (96-109); Globulin 2.4 g/dL (1.6-3.3); Glucose 95 mg/dL (70-110); Potassium 4.6 mmol/L (3.5-5.5); Sodium 141 mmol/L (135-145); Total Bilirubin 0.3 mg/dL (0.3-1.2); Total Protein 6.9 g/dL (6.2-8.2)
== END | disposition home or self-care (01) ==
LOC: LABWHC1 11:45
PROVIDERS: ATTEND Physician Assistant
DX: L40.0 Psoriasis vulgaris (principal); D48.5 Neoplasm of uncertain behavior of skin; L57.0 Actinic keratosis; Z79.899 Other long term (current) drug therapy
CPT/HCPCS: 36415; 80053; 85025; 86704; 86706; 86803; 87340

== ENCOUNTER → 2024-09-13 | Outpatient (CLI) | payer MEDICARE | END | disposition home or self-care (01) | LOC: LABWHC1 11:43 | PROVIDERS: ATTEND Physician Assistant | DX: L40.0 Psoriasis vulgaris (principal); D48.5 Neoplasm of uncertain behavior of skin; L57.0 Actinic keratosis; Z79.899 Other long term (current) drug therapy | CPT/HCPCS: 36415; 86480 ==